=== PATIENT | female | born 2005 | race Caucasian/White ===

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

== ENCOUNTER 2023-03-31 09:52 | Emergency (ER) | payer BC, SELFPAY ==
[2023-03-31 10:03] VITALS: BP 129/69; PULSE 100; RESP 26; TEMP 36.7; O2SAT 100; BMI 25.1
[2023-03-31 10:04] VITALS: PULSE 77; O2SAT 99
--- NOTE | 2023-03-31 10:14 | ED.GENADULT ---
HPI - General Adult General Chief complaint: Rib Pain Stated complaint: reaction to medication Time Seen by Provider: 03/31/23 10:07 History of Present Illness HPI narrative: This 17-year-old female comes in reporting bilateral lower anterior rib pain that started this morning after vomiting. She states that she did have alcohol last night. She comes in with episodes of pain lasting for 10 or 15 minutes she says. She does not report any other symptoms but states that she did start Lexapro about 12 days ago and wonders if this is a reaction to that medicine. She states that she is otherwise in good health. Related Data Home Medications Medication Instructions Recorded Confirmed escitalopram oxalate 10 mg tablet mg PO 03/31/23 Previous Rx's Medication Instructions Recorded albuterol sulfate 90 mcg/actuation 2 puff inhalation Q4-6H PRN 04/09/22 aerosol inhaler shortness of breath or wheezing #8.5 grams benzonatate 100 mg capsule 100 mg PO BID-TID PRN cough #20 04/09/22 caps ketorolac 10 mg tablet 10 mg PO Q8H 5 days #15 tabs 03/31/23 ondansetron HCl 4 mg tablet 4 mg PO Q6H #10 tabs 03/31/23 Allergies Allergy/AdvReac Type Severity Reaction Status Date / Time No Known Drug Allergies Allergy Verified 03/31/23 10:01 Review of Systems Status of ROS: Reports: 10 or more systems reviewed and unremarkable except as noted in History and below Narrative: Constitutional: No fevers, no weight gain or loss. Eyes: No discharge. No vision changes. HENT: No congestion, no sore throat, no ear pain. Cardiovascular: No palpitations. Respiratory: No shortness of breath, no wheezes, no cough. Gastrointestinal: No abdominal pain, no vomiting, no diarrhea. Genitourinary: No dysuria, no hematuria. Musculoskeletal: Normal range of motion. Skin: No rashes, no pruritis. Neurological: No dizziness, weakness, sensory change, speech change. Endo/Heme/Allergies: No bruising or bleeding. No polydipsia. Pysch: no suicidality, no anxiety, no insomnia. All other systems reviewed and are negative. [facility] Medical History (Updated 03/31/23 @ 10:41 by James Foss MD) Sinus infection ?J32.9 - Chronic sinusitis, unspecified (ICD-10) Cough ?R05.9 - Cough, unspecified (ICD-10) Social History Smoking Status: Never smoker Do you use any of these nicotine containing products: None Second hand tobacco smoke exposure: No How often do you have a drink containing alcohol: never How often do you have six or more drinks on one occasion: Never AUDIT-C Alcohol total score: 0 Non-prescribed substance use: denies use service: No Exam Narrative: Exam Narrative: Constitutional: Well-developed, well-nourished, no acute distress. HEENT: Normocephalic, atraumatic. Neck: Normal range of motion. Nontender. Supple. Heart: Regular. No murmurs. Normal rate. Intact distal pulses. Lungs: Clear to auscultation. No wheezes, rhonchi, or rales. Pain in the lower anterior ribs bilaterally which is reproducible with deep breathing and certain movements. Abdomen: Normal bowel sounds. Nontender. No rebound tenderness. Genitalia: Deferred. Back: No midline tenderness. Normal range of motion. Extremities: Normal range of motion. No injury. Skin: Intact. No rash. Warm. No erythema or pallor. Neurologic: No altered sensation. No weakness. Alert and oriented. Psychiatric: No suicidality. No anxiety or depression. No insomnia. Nursing notes and vitals signs are reviewed. Const: Vital Signs, click to edit/add: Vital Signs - 24 hr 03/31/23 10:03 03/31/23 10:03 03/31/23 10:04 Temperature 98.0 F Pulse Rate 77 Pulse Rate [Left P ulse Oximeter] 100 Respiratory Rate 26 H Blood Pressure 129/69 Blood Pressure [Le ft Upper Arm] 129/69 Pulse Oximetry 100 99 Oxygen Delivery Me thod Room Air Course Vital Signs Vital signs: Initial Vital Signs Temperature 98.0 F 03/31/23 10:03 Temperature Source Temporal Artery Scan 03/31/23 10:03 Pulse Rate 100 03/31/23 10:03 Pulse Strength 3+ Normal 03/31/23 10:03 Respiratory Rate 26 H 03/31/23 10:03 Blood Pressure 129/69 03/31/23 10:03 Blood Pressure Mean 89 03/31/23 10:03 Blood Pressure Position Sitting 03/31/23 10:03 Pulse Oximetry 100 03/31/23 10:03 Oxygen Delivery Method Room Air 03/31/23 10:03 Vital Signs Temperature 98.0 F 03/31/23 10:03 Pulse Rate 100 03/31/23 10:03 Respiratory Rate 26 H 03/31/23 10:03 Blood Pressure 129/69 03/31/23 10:03 Pulse Oximetry 100 03/31/23 10:03 Oxygen Delivery Method Room Air 03/31/23 10:03 Temperature 98.0 F 03/31/23 10:03 Pulse Rate 77 03/31/23 10:04 Respiratory Rate 26 H 03/31/23 10:03 Blood Pressure 129/69 03/31/23 10:03 Pulse Oximetry 99 03/31/23 10:04 Oxygen Delivery Method Room Air 03/31/23 10:03 Medications Administered Medications: Discontinued Medications Generic Name Dose Route Start Last Admin Trade Name Freq PRN Reason Stop Dose Admin Ketorolac Tromethamine 30 mg 03/31/23 10:14 03/31/23 10:22 Ketorolac 30 Mg/Ml Inj IM 03/31/23 10:15 30 mg ONCE ONE Administration Medical Decision Making MDM Narrative Medical decision making narrative: This patient comes in with some vomiting episodes that began this morning and soon after this she had spasms of pain and her right and left anterior lower ribs. Her examination today is normal other than discomfort that comes and goes. This pain is reproducible suggesting musculoskeletal cause for her pain. I did discuss lab and imaging options with the patient which were declared in a process of shared decision making. The patient did receive an intramuscular injection of Toradol. She also received a rib belt and prescriptions are provided for Toradol and Reglan. Discharge Plan Discharge Clinical Impression: Acute chest wall pain, Vomiting Patient Disposition: Home, Self-Care Condition: Stable Additional Instructions: Take medication as needed and indicated. Wear rib belt also as needed. Follow up with MD return if worsening. Prescriptions: New ketorolac 10 mg tablet 10 mg PO Q8H 5 Days Qty: 15 0RF ondansetron HCl 4 mg tablet 4 mg PO Q6H Qty: 10 0RF No Action albuterol sulfate 90 mcg/actuation HFA aerosol inhaler 2 puff inhalation Q4-6H PRN (Reason: shortness of breath or wheezing) Qty: 8.5 0RF benzonatate 100 mg capsule 100 mg PO BID-TID PRN (Reason: cough) Qty: 20 0RF escitalopram oxalate 10 mg tablet PO Follow Up/Referrals: Provider,Not a Local [Primary Care Provider] - Stand Alone Forms: [employer] Info Instructions
[2023-03-31] MEDS: KETOROLAC 30 MG/ML inj IM (10:22)
--- OUTSIDE RECORDS SUMMARY | 2023-03-31 10:27 | XMS_ITS | Encounter Summary ---
Author Name Unknown Organization [facility] Address [address] [address] Phone Care Team Providers Care Sider Name Role Phone Debi Brand MD Primary Care Provider [phone] Reason for Visit * Ancillary Services (Routine) - Closed Specialty Diagnoses / Procedures Referred By Sharyn lynn Referred To Contact Radiology Diagnoses Chronic pain of left knee Procedures XR KNEE LT 4 OR MORE VIEWS Miles العلي MD [address] [place] [address] Referral ID Status Reason Start Date Expiration Date Visits Re quested Visits Authorized [id number] Closed 08/16/2022 11/17/2023 1 1 Encounter Details Date Type Department Care Team (Latest Contact Info) Description 08/16/2022 4:15 PM CDT Ancillary Procedure [facility] [address] [place] [address] Miles العلي MD [address] [place] [address] Chronic pain of left knee Social History Tobacco Use Types Packs/Day Years Used Date Smoking Tobacco: Never Smokeless Tobacco: Never Alcohol Use Standard Drinks/Week Comments Not Asked 0 (1 standard drink = 0.6 oz pur e alcohol) Overall Financial Resource Strain (CARDIA) Answe r Date Recorded How hard is it for you to pa y for the very basics like food, housing, medical care, and heating? Not hard at all 12/31/2020 PHQ-2 Answer Date Recorded PHQ-2 Total 0 08/16/2022 Hunger Vital Sign Answer Date Recorded Within the past 12 months, y ou worried that your food would run out before you got the money to buy more. Never true 01/01/20 21 Within the past 12 months, t he food you bought just didn't last and you didn't have money to get more. Never true 12/31/2020 PRAPARE - Transportation Answer Date Re corded In the past 12 months, has l ack of transportation kept you from medical appointments or from getting medications? No 12/19 In the past 12 months, has l ack of transportation kept you from meetings, work, or from getting things needed for daily living? No 12/31/2020 Sex and Gender Information Value Date Recorded Sex Assigned at Female 09/27/2020 6:18 PM CDT Gender Identity Female 09/27/2020 6:18 PM CDT Sexual Orientation Not on file Job Start Date Occupation Industry Not on file Not on file Not on file COVID-19 Exposure Response Date Recorded In the last 10 days, have yo u been in contact with someone who was confirmed or suspected to have Coronavirus/COVID-19? No / Unsure 08/16/2022 3:10 PM CDT documented as of this encounter Functional Status Functional Status Response Date of Assess ment Patient's Vision Adequate to Safely Complete Daily Activities Yes 05/17/2020 Patient's Memory Adequate to Safely Complete Daily Activities Yes 05/17/2020 Cognitive Status Response Date of Assessm ent Patient's Judgment Adequate to Safely Complete Daily Activities Yes 05/17/2020 documented as of this encounter Plan of Treatment Not on file documented as of this encounter Procedures Procedure Name Priority Date/Time Associated Diagnosis Comments XR KNEE LT 4 OR MORE VIEWS Routine 08/16/2022 4:22 PM CDT Chronic pain of left knee documented in this encounter Results * XR KNEE LT 4 OR MORE VIEWS (08/16/2022 4:22 PM CDT) Anatomical Region Laterality Modality Knee Radiographic Mandy ging 08/16/2022 4:22 PM CDT Narrative 08/16/2022 4:29 PM CDT This document is currently in Final Status Exam FOUR VIEW LEFT KNEE SERIES 08/16/2022 at 1621 hours INDICATION: Pain. FINDINGS: Knee compartments are well preserved. No acute or chronic bony abnormalities are seen. IMPRESSION: Normal left knee series. Dictated By: Natalio Valerio MD 08/16/2022 4:25 PM Edited By: SUDHAKAR 08/16/2022 4:28 PM Electronically Signed: Natalio Valerio MD 08/16/2022 4:29 PM Procedure Note Natalio Valerio MD - 08/16/2022 This document is currently in Final Status Exam FOUR VIEW LEFT KNEE SERIES 08/16/2022 at 1621 hours INDICATION: Pain. FINDINGS: Knee compartments are well preserved. No acute or chronic bonyabnormalities are seen. IMPRESSION: Normal left knee series. Dictated By: Natalio Valerio MD 08/16/2022 4:25 PM Edited By: SUDHAKAR 08/16/2022 4:28 PM Electronically Signed: Natalio Valerio MD 08/16/2022 4:29 PM Miles العلي MD [facility] G ORDERABLES documented in this encounter Visit Diagnoses Diagnosis Chronic pain of left knee Pain in joint, lower leg documented in this encounter Care Teams Sider Relationship Specialty [place] [address] [place] [id number] PCP - General Family Medicine 09/29/21 documented as of this encounter
--- OUTSIDE RECORDS SUMMARY | 2023-03-31 10:27 | XMS_ITS | Encounter Summary ---
Author Name Unknown Organization [facility] Address [address] [address] Phone Care Team Providers Care Pantry Worker Name Role Phone Debi Brand MD Primary Care Provider [phone] Encounter Details Date Type Department Care Team (Late st Contact Info) Description 08/28/2022 Telephone [facility] [address] [place] [address] Miles العلي MD [address] [place] [address] Social History Tobacco Use Types Packs/Day Years [...] on file documented as of this encounter Visit Diagnoses Not on filedocumented in this encounter Care Teams Pantry Worker Relationship Specialty [place] [address] [place] [address] PCP - General Family Medicine 09/29/21 documented as of this encounter
--- OUTSIDE RECORDS SUMMARY | 2023-03-31 10:27 | XMS_ITS | Clinical Summary ---
Author Name Unknown Organization [employer] [facility] Address [place], [place] [address] Care Team Providers Care Refinish Technician Name Role Phone Pcp, No Primary Care Provider Unavailabl e Allergies No known active allergies Medications No known medications Active Problems No known active problems Encounters Date Type Department Care Team Description 02/15/2023 1:45 PM TIN ASSORTER Ancillary Procedure [facility] [address] [place] [address] 02/15/2023 1:15 PM TIN ASSORTER Office Visit [facility] [address] [place] [address] Lyssa Cruz PA Foot Injury (Dropped 45lb dumbbell on left foot 2 days ago) 02/15/2023 Travel from Last 3 Months Social History Tobacco Use Types Packs/Day Years Used Date Smoking Tobacco: Never Smokeless Tobacco: Never Tobacco Cessation:Counseling Given: Not Answered Alcohol Use Standard Drinks/Week Comments Never 0 (1 standard drink = 0.6 oz pur e alcohol) Social Connections Answer Date Recorded Frequency of Communication with Friends and Fami ly Not on file 02/15/2023 Sex and Gender Information Value Date Recorded Sex Assigned at Not on file Gender Identity Not on file Sexual Orientation Not on file Obstetrics History Last Filed Vital Signs Vital Sign Reading Time Taken Comments Blood Pressure 101/63 02/15/2023 1:21 PM TIN ASSORTER Pulse 72 02/15/2023 1:21 PM TIN ASSORTER Temperature - - Respiratory Rate - - Oxygen Saturation 99% 02/15/2023 1:21 PM TIN ASSORTER Inhaled Oxygen Concentration - - Weight - - Height - - Body Mass Index - - Plan of Treatment Health Maintenance Due Date Last Done Comments Well Child Check for age 3-20 04/13/2006 HPV series for age 9-26 (1 - 2-dose series) 05/11/2014 Tdap 05/11/2014 Depression screening for age 12+ 2015 HIV for age 15-65 05/11/2018 Chlamydia for age 16-24 2019 BMI (ht and wt on same day) for age 18+ 05/11/2021 Hepatitis C screening for ag e 18-79 05/11/2021 COVID-19 vaccine series ( season) 2022 02/08/2022, 12/21/2020, 11/23/2020 Influenza for age 9-49 10/19/2022 Meningococcal series for age 11-21 Aged Out No longer eligible b ased on patient's age to complete this topic Pneumococcal series for age 6-64 Aged Out No longer eligible b ased on patient's age to complete this topic Procedures Procedure Name Priority Date/Time Associated Diagnosis Comments XR FOOT 3 VIEWS LEFT KAREN 02/15/2023 1:14 PM TIN ASSORTER Crush accident from Last 3 Months Results * XR FOOT 3 VIEWS LEFT (02/15/2023 1:14 PM TIN ASSORTER) Anatomical Region Laterality Modality FEET, FOOT L Computed Radiogr aphy 02/15/2023 2:04 PM TIN ASSORTER Narrative 02/15/2023 2:04 PM TIN ASSORTER For Patients: ??As a result of the Cures Act, medical imaging exams and procedure reports are released immediately into your electronic medical record. ??You may view this report before your referring provider. ??If you have questions, please contact your health care provider. Indication: Injury and pain Technique: Left foot 3 views. Comparison: None Findings: Bones: Alignment is normal. No fractures or bone lesions. ?? Joint spaces: Unremarkable. ?? Soft tissues: Unremarkable. ?? Impression: No sign of acute injury. Dictated by Jarad Brown MD @ Feb 15 2023 ??2:04PM (Electronically Signed) ?? Procedure Note Jarad Brown MD - 02/15/2023 For Patients: As a result of the Cures Act, medical imagingexams and procedure reports are released immediately into your electronicmedical record. You may view this report before your referring provider.If you have questions, please contact your health care provider. Indication: Injury and pain Technique: Left foot 3 views. Comparison: None Findings: Bones: Alignment is normal. No fractures or bone lesions. Joint spaces: Unremarkable. Soft tissues: Unremarkable. Impression: No sign of acute injury. Dictated by Jarad Brown MD @ Feb 15 2023 2:04PM (Electronically Signed) Lyssa KENYONIN G from Last 3 Months Care Teams Refinish Technician Relationship Specialty Start Date End Date Pcp, No . PCP - General 10/12/21
--- OUTSIDE RECORDS SUMMARY | 2023-03-31 10:27 | XMS_ITS | Encounter Summary ---
Author Name Unknown Organization [facility] Address [address] [place] [id number] Phone Care Team Providers Care Steamblaster Name Role Phone Debi Brand MD Primary Care Provider [phone] [phone] Encounter Details Date Type Department Care Team (Latest Contact Info) Description 01/12/2023 Travel Social History Tobacco Use Types Packs/Day [...] PHQ-2 Answer Date Recorded PHQ-2 Total 0 01/12/2023 Hunger Vital Sign Answer Date Recorded Within [...] on filedocumented in this encounter Care Teams Steamblaster Relationship Specialty [place] [address] [place] [phone] PCP - General Family Medicine 09/29/21 documented as of this encounter
--- OUTSIDE RECORDS SUMMARY | 2023-03-31 10:27 | XMS_ITS | Clinical Summary ---
Author Name Unknown Organization [facility] Address [address] [address] Phone Care Team Providers Care Plastics Patternmaker Name Role Phone Debi Brand MD Primary Care Provider [phone] [phone] Allergies No known active allergies Medications No known medications Active Problems Problem Noted Date Diagnosed Date Lactose intolerance 07/15/2012 ADHD (attention deficit hyperactivity disorder) Encounters Date Type Department Care Team Description 01/12/2023 12:00 PM PUSHER RUNNER Office Visit [facility] [address] [place], [place] [address] Shayan Hopkins MD Cellulitis, lip (Primary Dx); Facial contusion, initial encounter 01/12/2023 Travel from Last 3 Months Immunizations Name Administration Dates Next Due COVID-19 Vaccine: Pfizer Biv alent (TRI-SUCR Zavala) 12+ Yrs (Imm Clinic) 02/08/2022 COVID-19 Vaccine: Pfizer Dos e 1 (Purple- 12+ Yrs) [facility] 11/23/2020 COVID-19 Vaccine: Pfizer Dos e 2 (Purple- 12+ Yrs) [facility] 12/21/2020 DTaP <7 years 01/25/2005 HHiA-PyuJ-RRY (Pediarix) 2003,2003,0 2003 DTaP-IPV (Kinrix/Quadracel) 07/20/2008 Hepatitis A, Ped/Adolescent 2 dose 07/20/2008, Hib PRP OMP (PedvaxHib) 2004,2003, Human Papilloma Virus 9 09/28/2020,09/17/2017 Influenza (Historic Use Only) 12/25/2006 Influenza Live Intranasal Quad 01/16/2011 Influenza Live Trivalent Intranasal 11/15/2011,1 03/18/2010,12/11/2007 Influenza Quad Preservative Free 12/27/2016 Influenza Seasonal Inj A,B 12/12/2006,12/08/2004 ,2003 Influenza Seasonal Inj A,B P reservative Free 03/08/2004 Influenza Unspecified Formulation 12/25/2006 MMR 07/20/2008,2004 Meningococcal B Vaccine, Rec ombinant Omv, Adjuvanted 11/23/2020,09/28/2020 Meningococcal MCV4 (Menveo) 2 Vials 09/28/2020 Pneumococcal Conjugate, (Prevnar)7-valent 2003,2003,2003 Tdap (7 years and older) 09/20/2015 Varicella (Varivax) 07/20/2008,08/25/2004 meningococcal MCV4P (Menactra) 09/20/2015 Medical History Medical History Date Comments ADHD (attention deficit hyperactivity disorder) Social History Tobacco Use Types Packs/Day Years Used Date Smoking Tobacco: Never Smokeless Tobacco: Never Tobacco Cessation:Counseling Given: Not Answered Alcohol Use Standard Drinks/Week Comments Not Asked [...] History Growth Chart Information Age Height Weight Ezlflp-yyi-ihkz th Percentile BMI Percentile Head Circum Head Circum Percentile Date 17 years 77.3 kg (170 lb 6.7 oz) 2022 17 years 172.7 cm (5' 8) 78.9 kg (174 lb) 85.93%* 2022 17 years 172.7 cm (5' 8) 79.2 kg (174 lb 9.7 oz) 86.30%* 2022 16 years 170.2 cm (5' 7) 73.7 kg (162 lb 7.7 oz) 83.42%* 2021 15 years 170.8 cm (5' 7.25) 68.6 kg (151 lb 3.8 oz) 73.93%* 2020 13 years 170.2 cm (5' 7) 73.9 kg (163 lb) 88.84%* 2018 12 years 168.9 cm (5' 6.5) 72.6 kg (160 lb 0.9 oz) 91.31%* 2017 11 years 168.9 cm (5' 6.5) 70.9 kg (156 lb 4 oz) 91.26%* 2016 11 years 167.6 cm (5' 6) 68.4 kg (150 lb 12 oz) 91.20%* 2016 10 years 166.4 cm (5' 5.5) 62.6 kg (138 lb) 87.70%* 2015 7 years 47.6 kg (105 lb) 2013 7 years 153 cm (5' 0.25) 49.8 kg (109 lb 12 oz) 91.34%* 2013 7 years 43.5 kg (96 lb) 2012 6 years 141 cm (4' 7.5) 39.7 kg (87 lb 8 oz) 90.35%* 2012 6 years 139.7 cm (4' 7) 34.5 kg (76 lb) 78.43%* 2011 5 years 132.1 cm (4' 4) 31.8 kg (70 lb) 86.10%* 2010 * [facility] (Girls, 2-20 Years) Last Filed Vital Signs Vital Sign Reading Time Taken Comments Blood Pressure 112/76 01/12/2023 1:08 PM PUSHER RUNNER Pulse 74 01/12/2023 1:08 PM PUSHER RUNNER Temperature 36.1 ??C (97 ??F) 01/12/2023 1:08 PM PUSHER RUNNER Respiratory Rate 18 01/12/2023 1:08 PM PUSHER RUNNER Oxygen Saturation 100% 01/12/2023 1:08 PM PUSHER RUNNER Inhaled Oxygen Concentration - - Weight 77.3 kg (170 lb 6.7 oz) 01/12/2023 1:08 P M PUSHER RUNNER Height 172.7 cm (5' 8) 08/31/2022 2:55 PM CDT Body Mass Index 25.91 08/31/2022 2:55 PM CDT Plan of Treatment Health Maintenance Due Date Last Done Comments Chlamydia Screening 2019 CHILD AND TEEN CHECKUP AGE 3-20 YRS 09/29/2022 09/29/2021, 09/29/2021, 09/29/2021, Additional history exists COVID-19 Vaccine ( season) 2022 02/08/2022, 12/21/2020, 11/23/2020 Influenza Vaccine Seasonal (Standing Order) (#1) 2022 12/27/2016, 01/16/2011, 12/25/2006, Additional history exists DTaP,Tdap,and Td Vaccines (Standing Order) (7 - Td or Tdap) 09/19/2025 09/20/2015, 07/20/2008, 01/25/2005, Additional history exists TETANUS (Standing Order) 09/19/2025 016, 01/25/2005, 2003, Additional history exists Hepatitis B Vaccine (Standing Order) Completed 2003, 2003, 2003 Pneumococcal/PCV20 Vaccine: Pediatrics (2-5 yrs) and At-Risk Patients (6-64 yrs) (Standing Order) Aged Out 2003, 2003, 2003 No longer eligible based on patient's age to complete this topic PERTUSSIS (Standing Order) Completed 09/19, 07/20/2008, 01/25/2005, Additional history exists HPV Vaccine (Standing Order) Completed 09/28/2020, 09/17/2017 Care Teams Plastics Patternmaker Relationship Specialty [place] [address] [facility] [place] [phone] PCP - General Family Medicine 09/29/21
--- OUTSIDE RECORDS SUMMARY | 2023-03-31 10:27 | XMS_ITS | Encounter Summary ---
Author Name Unknown Organization [facility] Address [address] [place] [address] Phone Care Team Providers Care Program/Music Director Name Role Phone Debi Brand MD Primary Care Provider [phone] [phone] Encounter Details Date Type Department Care Team (Latest Contact Info) Description 08/16/2022 Travel Social History Tobacco Use Types Packs/Day [...] on filedocumented in this encounter Care Teams Program/Music Director Relationship Specialty Start [place] [id number] [place] [phone] PCP - General Family Medicine 09/29/21 documented as of this encounter
--- OUTSIDE RECORDS SUMMARY | 2023-03-31 10:27 | XMS_ITS | Encounter Summary ---
Author Name Unknown Organization [facility] Address [address] [address] Phone Care Team Providers Care Arc And Gas Welder Name Role Phone Debi Brand MD Primary Care Provider [phone] [phone] Reason for Referral * Diagnostic (Routine) - Closed Specialty Diagnoses / Procedures Referred By Contac leah Referred To Contact Radiology Diagnoses Chronic pain of left knee Injury of left knee, initial encounter Acute meniscal injury of left knee, initial encounter Internal derangement of left knee Procedures MR KNEE LEFT WO CONTRAST Miles العلي MD [address] [place] [address] Referral ID Status Reason Start Date Expiration Date Visits Re quested Visits Authorized [id number] Closed 08/17/2022 11/17/2023 1 1 * Ancillary Services (Routine) - Closed Specialty Diagnoses / Procedures Referred By Contac t Referred To Contact Radiology Diagnoses Chronic pain of left knee Procedures XR KNEE LT 4 OR MORE VIEWS Miles العلي MD [address] [place] [address] Referral ID Status Reason Start Date Expiration Date Visits Re quested Visits Authorized [id number] Closed 08/16/2022 11/17/2023 1 1 Reason for Visit * Reason Comments Consult Left knee Encounter Details Date Type Department Care Team (Late st Contact Info) Description 08/16/2022 3:40 PM CDT Office Visit [facility] [address] [place] [phone] Miles العلي MD [address] [facility] [place] [place] [phone] Chronic pain of left knee (Primary Dx); Injury of left knee, initial encounter; Acute meniscal injury of left knee, initial encounter; Internal derangement of left knee Social History Tobacco Use [...] PM CDT documented as of this encounter Last Filed Vital Signs Vital Sign Reading Time Taken Comments Blood Pressure - - Pulse - - Temperature - - Respiratory Rate - - Oxygen Saturation - - Inhaled Oxygen Concentration - - Weight 79.2 kg (174 lb 9.7 oz) 08/16/2022 3:46 P M CDT Height 172.7 cm (5' 8) 08/16/2022 3:46 PM CDT Body Mass Index 26.55 08/16/2022 3:46 PM CDT documented in this encounter Functional Status Functional Status Response Date of Assess ment Patient's Vision Adequate to Safely Complete Daily Activities Yes 05/17/2020 Patient's Memory Adequate to Safely Complete Daily Activities Yes 05/17/2020 Cognitive Status Response Date of Assessm ent Patient's Judgment Adequate to Safely Complete Daily Activities Yes 05/17/2020 documented as of this encounter Progress Notes * Miles العلي MD - 08/16/2022 3:40 PM CDT CHIEF COMPLAINT: Chief Complaint Patient presents with ??? Consult Left knee HISTORY OF PRESENT ILLNESS: Barbie is a very pleasant 17 year old female who comes in today for evaluation of her left knee. 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 She states that she has had pain over her knee cap for about 4 months. Thispain is worse with running and jumping. She describes her pain as stabbing and will feel like something is stuck in her knee at times. She has a history of MCL tear, bursitis, and tendinitis in her knee. She has been working on therapy with her system trainer for about a month and will feel better with this, but states that her pain will return when she returns to activity. She presents today for evaluation and to discuss treatment options. PAIN SCORE: Four REVIEW OF SYSTEMS: Constitutional: no weight loss, fever, night sweats Skin: no rashes, pigmentation changes, or lesions of concern Resp: no cough or shortness of breath CV: no chest pains or palpitations Musculoskeletal: POSITIVE - please see above HPI for details No current outpatient medications on file. No current facility-administered medications for this visit. Allergies as of 08/16/2022 ??? (No Known Allergies) Past Medical History: Diagnosis Date ??? ADHD (attention deficit hyperactivity disorder) No past surgical history on file. No family history on file. Social History Tobacco Use ??? Smoking status: Never ??? Smokeless tobacco: Never Vaping Use ??? Vaping Use: Never used EXAMINATION: Vitals: 08/16/22 1546 Weight: 174 lb 9.7 oz (79.2 kg) Height: 5' 8 (1.727 m) Body mass index is 26.55 kg/m??. Patient is alert and orientated x4 and non-focal. Left Knee: Inspection: Deformity: Negative Swelling: Slight anteriorly Atrophy: Negative Skin changes: Negative Scars: Negative Tibial tubercle: Negative for bony growth Palpation / Tenderness: Tibial tuberosity: Negative Medial joint line: Positive Lateral joint line: Negative Patella: positive medially MCL: Negative LCL: Negative Patellar tendon: Negative Quad tendon: Negative Pes anserine bursa: Negative IT band: Negative Posterior knee: Negative Hamstring: Negative Neurovascular: Distal pulses: Intact Sensation: Intact medial thigh (obturator nerve), anterior thigh (femoral nerve), posterolateral calf (sciatic nerve), dorsal foot (peroneal nerve), plantar foot (tibial nerve) Range of Motion: Flexion: 120 degrees Extension: 0 degrees Strength Testing: Quadriceps: 5/5 Hamstrings: 5/5 Hips: 5/5 strength in dorsiflexion, plantar flexion, and EHL. Provocative Testing: ACL: Anterior drawer: negative Selvin: negative with firm endpoint PCL: Posterior drawer: negative Sag sign: negative MCL: Valgus stress: negative LCL: Varus stress: negative Meniscus: Lurdes: positive for medial pain Patellofemoral: Patellar grind test: negative Apley: negative Thesally: Positive IMAGING: I personally reviewed xrays of the patient's left knee taken today in the clinic due to complaints of pain and these demonstrate no evidence of fracture or other osseous abnormality. ASSESSMENT: 1. Chronic pain of left knee 2. Injury of left knee, initial encounter 3. Acute meniscal injury of left knee, initial encounter 4. Internal derangement of left knee PLAN: - Discussed with patient today that clinical presentation is most consistent with a left kneemeniscus tear. - Also discussed possible differential diagnosis which includes: left knee strain/sprain. - Recommended interventions including: -Wcvg-und-rjlsjqw pain medications such as acetaminophen, ibuprofen, topical diclofenac gel -Use of heat/ice as tolerated -Rest and physical activity modification -Further imaging -Consideration for physical therapy - Through shared decision making, patient opted to trial Further imaging via a left knee mri to rule out a meniscus tear. I will contact her with the results of this imaging. - Recommend follow-up after her MRI. - Patient was agreeable to plan of care. All questions/concerns were addressed. I, Marck Palacios, am serving as a scribe to document services professionally performed by Dr. Miles العلي for this visit based on the providers statements to me on the date of this clinic visit. documented in this encounter Plan of Treatment Not on file documented as of this encounter Results * MR KNEE LEFT WO CONTRAST (08/27/2022 2:28 PM CDT) Anatomical Region Laterality Modality Knee Magnetic Resonan ce 08/27/2022 2:28 PM CDT Narrative 08/27/2022 4:55 PM CDT This document is currently in Final Status Exam MR KNEE LEFT WO CONTRAST HISTORY: Knee trauma, internal derangement suspected, xray done; COMPARISON: 08/16/2022 FINDINGS: Ligaments/Tendons: ACL and PCL are intact. MCL, LCL and additional structures of the posterolateral corner are also intact. Focal T2 hyperintense signal involving the proximal patellar tendon. No full-thickness tear. Mild overlying superficial soft tissue edema as well. Medial Compartment: Meniscus is intact. No significant chondromalacia. Lateral Compartment: Meniscus is intact. No significant chondromalacia. Patellofemoral compartment: No significant chondromalacia. Bones/Muscle: Visualized bones and musculature are otherwise normal. Other: Trace joint effusion. No Mcbride's cyst. Neurovascular structures are unremarkable. IMPRESSION: 1. Low-grade partial-thickness tearing and tendinopathy involving the proximal patellar tendon with adjacent reactive changes. 2. Menisci and ligaments are otherwise intact. Electronically Signed: Charlie Helms 08/27/2022 4:55 PM Procedure Note Charlie Helms MD - 08/27/2022 This document is currently in Final Status Exam MR KNEE LEFT WO CONTRAST HISTORY: Knee trauma, internal derangement suspected, xray done; COMPARISON: 08/16/2022 FINDINGS: Ligaments/Tendons: ACL and PCL are intact. MCL, LCL and additionalstructures of the posterolateral corner are also intact. Focal [id number] signal involving the proximal patellar tendon. Nofull-thickness tear. Mild overlying superficial soft tissue edema aswell. Medial Compartment: Meniscus is intact. No significant chondromalacia. Lateral Compartment: Meniscus is intact. No significant chondromalacia. Patellofemoral compartment: No significant chondromalacia. Bones/Muscle: Visualized bones and musculature are otherwise normal. Other: Trace joint effusion. No Mcbride's cyst. Neurovascular structures areunremarkable. IMPRESSION: 1. Low-grade partial-thickness tearing and tendinopathy involving theproximal patellar tendon with adjacent reactive changes. 2. Menisci and ligaments are otherwise intact. Electronically Signed: Charlie Helms 08/27/2022 4:55 PM Miles العلي MD [facility] MRI ORDERABLES * XR KNEE LT 4 OR MORE [...] Visit Diagnoses Diagnosis Chronic pain of left knee- Primary Pain in joint, lower leg Injury of left knee, initial encounter Acute meniscal injury of left knee, initial encounter Internal derangement of left knee Unspecified internal derangement of knee Chronic pain of left knee Pain in joint, lower leg Chronic pain of left knee Pain in joint, lower leg Injury of left knee, initial encounter Acute meniscal injury of left knee, initial encounter Internal derangement of left knee Unspecified internal derangement of knee documented in this encounter Care Teams Arc And Gas Welder Relationship Specialty [place] [address] [place] [phone] PCP - General Family Medicine 09/29/21 documented as of this encounter
--- OUTSIDE RECORDS SUMMARY | 2023-03-31 10:27 | XMS_ITS | Encounter Summary ---
Author Name Unknown Organization [facility] Address [address] [address] Phone Care Team Providers Care Candy Counter Clerk Name Role Phone Debi Brand MD Primary Care Provider [phone] [phone] Reason for Visit * Diagnostic (Routine) - Closed Specialty Diagnoses / Procedures Referred By Sharyn lynn Referred To Contact Radiology Diagnoses Chronic pain of left knee Injury of left knee, initial encounter Acute meniscal injury of left knee, initial encounter Internal derangement of left knee Procedures MR KNEE LEFT WO CONTRAST Miles العلي MD [address] [place] [address] Referral ID Status Reason Start Date Expiration Date Visits Re quested Visits Authorized [id number] Closed 08/17/2022 11/17/2023 1 1 Encounter Details Date Type Department Care Team (Latest Contact Info) Description 08/27/2022 2:00 PM CDT Ancillary Procedure [facility] [address] [place] [address] Miles العلي MD [address] [place] [address] Chronic pain of left knee; Injury of left knee, initial encounter; Acute [...] Procedure Name Priority Date/Time Associated Diagnosis Comments MR KNEE LEFT WO CONTRAST Routine 08/27/2022 2:28 PM CDT Chronic pain of left knee Injury of left knee, initial encounter Acute meniscal injury of left knee, initial encounter Internal derangement of left knee documented in this encounter Results * MR KNEE LEFT [...] the posterolateral corner are also intact. Focal [id number] signal involving the proximal patellar tendon. Nofull-thickness [...] PM Miles العلي MD [facility] MRI ORDERABLES documented in this encounter Visit Diagnoses Diagnosis Chronic pain of left knee Pain in joint, lower leg Injury of left knee, initial encounter Acute meniscal injury of left knee, initial encounter Internal derangement of left knee Unspecified internal derangement of knee documented in this encounter Care Teams Candy Counter Clerk Relationship Specialty [place] [address] [place] [phone] PCP - General Family Medicine 09/29/21 documented as of this encounter
--- OUTSIDE RECORDS SUMMARY | 2023-03-31 10:27 | XMS_ITS | Encounter Summary ---
Author Name Unknown Organization [facility] Address [address] [place] [phone] Phone Care Team Providers Care Natural Resource Economist Name Role Phone Debi Brand MD Primary Care Provider [phone] [phone] Encounter Details Date Type Department Care Team (Latest Contact Info) Description 08/31/2022 Travel Social History Tobacco Use Types Packs/Day [...] suspected to have Coronavirus/COVID-19? No / Unsure 08/31/2022 2:41 PM CDT documented as of this encounter [...] on filedocumented in this encounter Care Teams Natural Resource Economist Relationship Specialty Start [place] [id number] [place] [phone] PCP - General Family Medicine 09/29/21 documented as of this encounter
--- OUTSIDE RECORDS SUMMARY | 2023-03-31 10:27 | XMS_ITS | Encounter Summary ---
Author Name Unknown Organization [facility] Address [address] [address] Phone Care Team Providers Care Client Relationship Executive Name Role Phone Debi Brand MD Primary Care Provider [phone] Reason for Visit * Reason Comments Mouth/Lip Problem Pt states she was hi t in the mouth playing basketball in college, the upper and lower lip has open sore, and top and bottom teeth hurts. Has not been eating or drinking. Injury happened Saturday. Encounter Details Date Type Department Care Team (Late st Contact Info) Description 01/12/2023 12:00 PM BELLOWS ASSEMBLER Office Visit [facility] [address] [place] [address] [place] [address] [place] [address] Cellulitis, lip (Primary Dx); Facial contusion, initial encounter Social History Tobacco Use Types Packs/Day Years [...] Comments Blood Pressure 112/76 01/12/2023 1:08 PM BELLOWS ASSEMBLER Pulse 74 01/12/2023 1:08 PM BELLOWS ASSEMBLER Temperature 36.1 ??C (97 ??F) 01/12/2023 1:08 PM BELLOWS ASSEMBLER Respiratory Rate 18 01/12/2023 1:08 PM BELLOWS ASSEMBLER Oxygen Saturation 100% 01/12/2023 1:08 PM BELLOWS ASSEMBLER Inhaled Oxygen Concentration - - Weight 77.3 kg (170 lb 6.7 oz) 01/12/2023 1:08 P M BELLOWS ASSEMBLER Height - - Body Mass Index 25.91 08/31/2022 2:55 PM CDT documented in this encounter Functional Status Functional Status Response Date of Assess ment Patient's Vision Adequate to Safely Complete Daily Activities Yes 05/17/2020 Patient's Memory Adequate to Safely Complete Daily Activities Yes 05/17/2020 Cognitive Status Response Date of Assessm ent Patient's Judgment Adequate to Safely Complete Daily Activities Yes 05/17/2020 documented as of this encounter Ordered Prescriptions Prescription Sig Dispensed Refills Start Date End Da te nabumetone (Relafen) 750 MG tablet Take 1 Tablet by mouth two times a day for 7 days. Take with food. 14 Tablet 0 01/12/2023 01/19/2023 amoxicillin (Amoxil) 875 MG tabletIndications:Infec tion Take 1 Tablet by mouth every 12 hours for 7 days. Indications: Infection 14 Tablet 0 01/12/2023 01/19/2023 documented in this encounter Progress Notes * Shayan Hopkins MD - 01/12/2023 12:00 PM CST Patient Barbie Chu Chief Complaint Mouth/Lip Problem (Pt states she was hit in the mouth playing basketball in college, the upper and lower lip has open sore, and top and bottom teeth hurts. Has not been eating or drinking. Injury happened Saturday.) 17-year-old female patient of [facility] comes in for facial swelling on Saturday she got and elbowed in the face while she was playing basketball she cut her lower lip on her upper lip a little bit presently and things significant but then she is developing more swelling and pain and she had some purulent drainage below 1 wound today she is some generalized swelling on the right side of her facefrom the injury but she is worried about infection and to the swelling getting becoming kind of painful she is having no issues with her teeth and did not lose any consciousness HPI Review of Systems No Known Allergies Patient's Medications New Prescriptions AMOXICILLIN (AMOXIL) 875 MG TABLET Take 1 Tablet by mouth every 12 hours for 7 days. Indications: Infection NABUMETONE (RELAFEN) 750 MG TABLET Take 1 Tablet by mouth two times a day for 7 days. Take with food. Previous Medications No medications on file Modified Medications No medications on file Discontinued Medications No medications on file Past Medical History: Past Medical History: Diagnosis Date ??? ADHD (attention deficit hyperactivity disorder) Past Surgical History: No past surgical history on file. Family History: Her family history is not on file. Social History: She reports that she has never smoked. She has never used smokeless tobacco. Exam: Vitals: 01/12/23 1308 BP: 112/76 Pulse: 74 Temp: 36.1 ??C (97 ??F) TempSrc: Tympanic Resp: 18 Weight: 170 lb 6.7 oz (77.3 kg) SpO2: 100% Physical Exam Vitals are stable and afebrile she no acute distress oral exam demonstrates 2 superficial wounds onher upper and lower lip the upper lip is more erythematous warm and swollen I can express no purulent material and there is just some generalized swelling and edema along her right cheek Lab Results: No results found for this visit on 01/12/23. Lab results are reviewed as documented in the electronic chart. Rad Results: No results found. Radiographs interpreted by the ED physician will be over-read by a radiologist and the results willbe available in the electronic chart. Other Results: Course: Procedures: Procedures @[id number]@ Assessment: Infection of the upper lip Facial contusion on the right Plan: Amoxicillin twice a day for a week along with some Relafen for pain and swelling continue to ice the area and follow-up next week if her symptoms or not improving OWS ASSEMBLER documented in this encounter Plan of Treatment Not on file documented as of this encounter Visit Diagnoses Diagnosis Cellulitis, lip- Primary Diseases of lips Facial contusion, initial encounter documented in this encounter Care Teams Client Relationship Executive Relationship Specialty Start Date End Date Debi Brand MD [address] [place] [phone] PCP - General Family Medicine 09/29/21 documented as of this encounter
--- OUTSIDE RECORDS SUMMARY | 2023-03-31 10:27 | XMS_ITS | Encounter Summary ---
Author Name Unknown Organization [facility] Address [address] [address] Phone Care Team Providers Care Technical Communicator Name Role Phone Debi Brand MD Primary Care Provider [phone] Reason for Visit * Reason Comments Follow Up Left knee Encounter Details Date Type Department Care Team (Late st Contact Info) Description 08/31/2022 3:00 PM CDT Office Visit [facility] [address] [place] [address] Miles العلي MD [address] [place] [phone] Patellar tendinitis of left knee (Primary Dx); Chronic pain of left knee; Internal derangement of left knee Social History [...] Recorded In the last 10 days, have kiah u been in contact with someone who was confirmed or suspected to have Coronavirus/COVID-19? No / Unsure 08/31/2022 2:41 PM CDT documented as of this encounter Last Filed Vital Signs Vital Sign Reading Time Taken Comments Blood Pressure - - Pulse - - Temperature - - Respiratory Rate - - Oxygen Saturation - - Inhaled Oxygen Concentration - - Weight 78.9 kg (174 lb) 08/31/2022 2:55 PM CDT Height 172.7 cm (5' 8) 08/31/2022 2:55 PM CDT Body Mass Index 26.46 08/31/2022 2:55 PM CDT documented in this [...] Progress Notes * Miles العلي MD - 08/31/2022 3:00 PM CDT CHIEF COMPLAINT: Chief Complaint Patient presents with ??? Follow Up Left knee HISTORY OF PRESENT ILLNESS: Barbie comes in today for follow up of her left knee. At last visit on 08/16/2022, I recommended she obtain an MRI scan of the left which was done on 08/27/2022 through [facility]. Patient is here today to discuss the results of that MRI as well as recommended treatment options. PAIN SCORE: Seven REVIEW OF SYSTEMS: Constitutional: no weight loss, fever, night sweats Skin: no rashes, pigmentation changes, or lesions of concern Resp: no cough or shortness of breath CV: no chest pains or palpitations Musculoskeletal: POSITIVE - please see above HPI for details No current outpatient medications on file. No current facility-administered medications for this visit. Allergies as of 08/31/2022 ??? (No Known Allergies) Past Medical History: Diagnosis Date ??? ADHD (attention deficit hyperactivity disorder) No past surgical history on file. No family history on file. Social History Tobacco Use ??? Smoking status: Never ??? Smokeless tobacco: Never Vaping Use ??? Vaping Use: Never used EXAMINATION: Vitals: 08/31/22 1455 Weight: 174 lb (78.9 kg) Height: 5' 8 (1.727 m) Body mass index is 26.46 kg/m??. EXAM: No formal examination done today as today's visit was focused on review of MRI results and to discuss treatment plan. IMAGING: I personally reviewed the MRI scan of the patient's left knee taken on 08/27/2022 at [facility] and this demonstrates a low-grade partial- thickness tearing and tendinopathy involving the proximal patellar tendon. ASSESSMENT: 1. Low-grade partial-thickness tearing and tendinopathy involving the proximal patellar tendon PLAN: - Discussed with patient today that clinical presentation is most consistent with low-grade partial-thickness tearing and tendinopathy involving the proximal patellar tendon. We discussed treatment recommendations that include tendon fenestrations or platelet rich plasma injections to help force healing to the patellae tendon. - Recommended interventions including: -Uzwv-gtf-rshdgbb pain medications such as acetaminophen, ibuprofen, topical diclofenac gel -Use of heat/ice as tolerated -Rest and physical activity modification -Consideration for tendon fenestrations/PRP injection - Through shared decision making, patient opted to continue conservative management while taking some time to consider all discussed treatment options. - Recommend follow-up as needed - Patient was agreeable to plan of care. All questions/concerns were addressed. Elodia Hatch CNA, am serving as a scribe to document services professionally performed by Dr. Miles العلي for this visit based on the providers statements to me on the date of this clinic visit. documented in this encounter Plan of Treatment Not on file documented as of this encounter Visit Diagnoses Diagnosis Patellar tendinitis of left knee- Primary Patellar tendinitis Chronic pain of left knee Pain in joint, lower leg Internal derangement of left knee Unspecified internal derangement of knee documented in this encounter Care Teams Technical Communicator Relationship Specialty [place] [address] [place] [phone] PCP - General Family Medicine 09/29/21 documented as of this encounter
== END 2023-03-31 10:46 | disposition home or self-care (01) ==
PROVIDERS: Emergency Provider Emergency Medicine Emergency Medical Services
DX: R07.89 Other chest pain (principal); R11.10 Vomiting, unspecified
CPT/HCPCS: 96372; 99284; J1885

== ENCOUNTER 2023-11-12 20:51 | Emergency (ER) | payer BC, SELFPAY ==
[2023-11-12 20:53] VITALS: BP 113/71; PULSE 72; RESP 16; TEMP 36.4; O2SAT 100; BMI 25.4
--- NOTE | 2023-11-12 21:25 | ED_ITS ---
HPI - Headache General Chief Complaint: Headache/Migraine Stated Complaint: headache, abd pain, vomiting Time Seen by Provider: 11/12/23 21:15 History of Present Illness HPI Narrative: This 18-year-old female comes in with migraine type headache. Symptoms began yesterday and worsened somewhat last night. Her headache became much more significant today and included nausea with vomiting and light sensitivity. She states that she has a history of headaches and this 1 feels similar but is intractable with sgld-vut-clfvyfo medicines. Related Data Home Medications ?Medication ?Instructions ?Recorded ?Confirmed escitalopram oxalate 10 mg tablet 15 mg PO 03/31/23 clonidine HCl 0.1 mg tablet 0.1 mg PO DAILY 11/12/23 11/12/23 Allergies Allergy/AdvReac Type Severity Reaction Status Date / Time No Known Drug Allergies Allergy Verified 03/31/23 10:01 Review of Systems Status of ROS: Reports: 10 or more systems reviewed and unremarkable except as noted in History and below Narrative: Constitutional: No fevers, no weight gain or loss. Eyes: No discharge. No vision changes. HENT: No congestion, no sore throat, no ear pain. Cardiovascular: No chest pain, no palpitations. Respiratory: No shortness of breath, no wheezes, no cough. Gastrointestinal: No abdominal pain, no diarrhea. Genitourinary: No dysuria, no hematuria. Musculoskeletal: Normal range of motion. Skin: No rashes, no pruritis. Neurological: No dizziness, weakness, sensory change, speech change. Endo/Heme/Allergies: No bruising or bleeding. No polydipsia. Pysch: no suicidality, no anxiety, no insomnia. All other systems reviewed and are negative. [facility] Medical History (Updated 11/12/23 @ 21:28 by James Foss MD) Sinus infection ?J32.9 - Chronic sinusitis, unspecified (ICD-10) Cough ?R05.9 - Cough, unspecified (ICD-10) Social History Smoking Status: Never smoker Do you use any of these nicotine containing products: None Second hand tobacco smoke exposure: No How often do you have a drink containing alcohol: never How often do you have six or more drinks on one occasion: Never AUDIT-C Alcohol total score: 0 Non-prescribed substance use: denies use service: No Exam Narrative: Exam Narrative: Constitutional: Well-developed, well-nourished, no acute distress. HEENT: Normocephalic, atraumatic. Neck: Normal range of motion. Nontender. Supple. Heart: Intact distal pulses. Lungs: No chest discomfort. No wheezes, rhonchi, or rales. Abdomen: Nontender. Back: Normal range of motion. Extremities: Normal range of motion. No injury. Skin: Intact. No rash. Warm. No erythema or pallor. Neurologic: No altered sensation. No weakness. Alert and oriented. Psychiatric: No suicidality. No anxiety or depression. No insomnia. Nursing notes and vitals signs are reviewed. Const: Vital Signs, click to edit/add: Vital Signs - 24 hr 11/12/23 20:53 Temperature 97.6 F Pulse Rate [Pulse Oximeter] 72 Respiratory Rate 16 Blood Pressure [Ri ght Upper Arm] 113/71 Pulse Oximetry 100 Oxygen Delivery Me thod Room Air Course Vital Signs Vital signs: Initial Vital Signs Temperature 97.6 F 11/12/23 20:53 Temperature Source Temporal Artery Scan 11/12/23 20:53 Pulse Rate 72 11/12/23 20:53 Respiratory Rate 16 11/12/23 20:53 Blood Pressure 113/71 11/12/23 20:53 Blood Pressure Mean 85 11/12/23 20:53 Blood Pressure Position Sitting 11/12/23 20:53 Pulse Oximetry 100 11/12/23 20:53 Oxygen Delivery Method Room Air 11/12/23 20:53 Vital Signs Temperature 97.6 F 11/12/23 20:53 Pulse Rate 72 11/12/23 20:53 Respiratory Rate 16 11/12/23 20:53 Blood Pressure 113/71 11/12/23 20:53 Pulse Oximetry 100 11/12/23 20:53 Oxygen Delivery Method Room Air 11/12/23 20:53 Temperature 97.6 F 11/12/23 20:53 Pulse Rate 72 11/12/23 20:53 Respiratory Rate 16 11/12/23 20:53 Blood Pressure 113/71 11/12/23 20:53 Pulse Oximetry 100 11/12/23 20:53 Oxygen Delivery Method Room Air 11/12/23 20:53 MDM - Headache MDM Narrative Medical decision making narrative: This patient comes in with symptoms typical of a migraine that is not adequately treated with dcdh-zdg-hyyynxl medicines. She is not showing any signs or symptoms of a worrisome cause for her headache. An IV was established where she received doses of Toradol 15 mg, Benadryl 50 mg, and Zofran 4 mg. The patient also received a L of normal saline intravenously. These treatments brought complete relief of her headache. She is okay to be discharged home. Discharge Plan Discharge Clinical Impression: Migraine Patient Disposition: Home, Self-Care Condition: Improved Additional Instructions: Use medicines as needed and prescribed for headache symptoms. Follow up with MD return if worsening. Prescriptions: No Action escitalopram oxalate 10 mg tablet 15 mg PO clonidine HCl 0.1 mg tablet 0.1 mg PO DAILY Follow Up/Referrals: Provider,Not a Local [Primary Care Provider] - Stand Alone Forms: [employer] Info Instructions
--- OUTSIDE RECORDS SUMMARY | 2023-11-12 21:29 | XMS_ITS | Encounter Summary ---
Author Organization [facility] Address [address] [place] [address] Phone Care Team Providers Care Voltage Tester Name Role Phone Debi Brand MD Primary Care Provider [phone] Encounter Details Date Type Department Care Team (Late st Contact Info) Description 09/10/2023 12:50 PM CDT ALLIED HEALTH/NURSE VISIT [facility] [address] [place] [address] Social History Tobacco Use Types [...] PHQ-2 Answer Date Recorded PHQ-2 Total 0 09/10/2023 Hunger Vital Sign Answer Date Recorded Within [...] as of this encounter Plan of Treatment Upcoming Encounters Date Type Department Care Team (Late st Contact Info) Description 01/29/2024 3:00 PM MILL STENCILER Appointment [facility] [address] [phone] Joellen Andrade DO [address] [phone] documented as of this encounter Procedures Procedure Name Priority Date/Time Associated Diagnosis Comments VITAMIN D TOTAL Routine 09/10/2023 12:46 PM CDT Facial tic COMPREHENSIVE METABOLIC PANEL Routine 09/10/2023 12:46 PM CDT Facial tic HEMOGRAM Routine 09/10/2023 12:46 PM CDT Facial tic MAGNESIUM Routine 09/10/2023 12:46 PM CDT Facial tic VITAMIN B12 Routine 09/10/2023 12:46 PM CDT Facial tic documented in this encounter Results * MAGNESIUM (09/10/2023 12:46 PM CDT) Magnesium 2.1 1.8 - 2.7 mg/dL 09/10/2023 3:16 PM CDT [facility] Blood BLOOD SPECIMEN / Unknown Venipuncture / Unknown 09/10/2023 12:46 PM CDT 09/10/2023 12:46 PM CDT Debi Brand MD EC CHEMISTRY JEFFREY GARCIA [facility] [address] [place] [address], [facility] * (ABNORMAL) COMPREHENSIVE METABOLIC PANEL (09/10/2023 12:46 PM CDT) Sodium 137 134 - 143 mEq/L 09/10/2023 1:19 PM CDT [facility] Potassium 4.2 3.4 - 5.1 mEq/L 09/10/2023 1:19 PM CDT [facility] Chloride 104 99 - 110 mEq/L 09/10/2023 1:19 PM CDT [facility] Carbon Dioxide 26 19 - 29 mEq/L 09/10/2023 1:19 PM CDT [facility] Anion Gap 7.0 3.0 - 15.0 mEq/L 09/10/2023 1:19 PM CDT [facility] Blood Urea Nitrogen 12 5 - 24 mg/dL 09/10/2023 1:19 PM CDT [facility] Creatinine 1.04(H) 0.40 - 1.00 mg/dL 09/10/2023 1:19 PM CDT [facility] Glomerular Filtration Rate 79 >60 mL/min/1. 73 m*2 09/10/2023 1:19 PM CDT [facility] Comment:Risk of cardiovascul ar disease increases when GFR is abnormal; persistently reduced GFR values are a specific indication of CKD. This calculation uses CKD- EPI 2020 equation without adjustment for race; it has not been validated in women. Calcium 9.8 8.4 - 10.5 mg/dL 09/10/2023 1:19 PM CDT [facility] Glucose 88 70 - 99 mg/dL 09/10/2023 1:19 PM CDT [facility] Protein, Total 7.8 6.0 - 8.0 g/dL 09/10/2023 1:19 PM CDT [facility] Albumin 4.3 3.5 - 5.0 g/dL 09/10/2023 1:19 PM CDT [facility] Alkaline Phosphatase 76 40 - 150 IU/L 09/10/2023 1:19 PM CDT [facility] Aspartate Aminotransferase 17 10 - 40 IU/L 09/10/2023 1:19 PM CDT [facility] Alanine Aminotransferase 13 6 - 31 IU/L 09/10/2023 1:19 PM CDT [facility] Bilirubin, Total 0.4 0.2 - 1.2 mg/dL 09/10/2023 1:19 PM CDT [facility] Blood BLOOD SPECIMEN / Unknown Venipuncture / Unknown 09/10/2023 12:46 PM CDT 09/10/2023 12:46 PM CDT [facility] - 09/10/2023 1:19 PM CDT Current ADA criteria for Glucose: ?Normal: 70-99 mg/dL ?Impaired Fasting Glucose: 100-125 mg/dL ?Diabetes Mellitus: at or above 126 mg/dL The diagnosis of diabetes must be confirmed on a subsequent day by measuring Fasting Plasma Glucose, 2-hr PG or random plasma glucose (if symptoms are present). Deib Brand MD CHEMISTRY ORDE RADHA [facility] Organization Address City/State/ZIP Co de Phone Number [facility] [address] [place] [address], [facility] * HEMOGRAM (09/10/2023 12:46 PM CDT) [facility] WBC 7.3 3.2 - 11.0 10*9/L 09/10/2023 12:53 PM CDT [facility] RBC 4.62 3.77 - 5.24 10*12/L 09/10/2023 12:53 PM CDT [facility] HGB 13.4 11.2 - 15.5 g/dL 09/10/2023 12:53 PM CDT [facility] HCT 41.7 34.3 - 46.0 % 09/10/2023 12:53 PM CDT [facility] MCV 90.3 81.4 - 99.0 fL 09/10/2023 12:53 PM CDT [facility] MCH 29.0 26.7 - 33.1 pg 09/10/2023 12:53 PM CDT [facility] MCHC 32.1 31.6 - 35.5 g/dL 09/10/2023 12:53 PM CDT [facility] RDW 12.9 11.3 - 14.6 % 09/10/2023 12:53 PM CDT [facility] PLT 338 130 - 375 10*9/L 09/10/2023 12:53 PM CDT [facility] Blood BLOOD SPECIMEN / Unknown Venipuncture / Unknown 09/10/2023 12:46 PM CDT 09/10/2023 12:46 PM CDT Debi Brand MD HEMATOLOGY ORD ERABLES Performing Organization Address City/State/[facility] Co de Phone Number [facility] [address] * VITAMIN D TOTAL (09/10/2023 12:46 PM CDT) [facility] Vitamin D Total 29 27 - 80 ng/mL 09/10/2023 8:53 PM CDT [facility] Blood BLOOD SPECIMEN / Unknown Venipuncture / Unknown 09/10/2023 12:46 PM CDT 09/10/2023 12:46 PM CDT Narrative [facility] - 09/10/2023 8:53 PM CDT ?[facility] Reference Range Deficiency ?<10 ?? ng/mL Insufficiency ?? 10-26 ng/mL Sufficiency ? 27-80 ng/mL Toxicity ?>80 ?? ng/mL Debi Brand MD EC LAB SEND OUT O RDERABLES ABN Performing Organization Address City/[facility]/ZIP Co de Phone Number [facility] [address] [place], [place] [address] * (ABNORMAL) VITAMIN B12 (09/10/2023 12:46 PM CDT) Vitamin B12 912(H) 213 - 816 pg/mL 09/10/2023 3:45 PM CDT [facility] Blood BLOOD SPECIMEN / Unknown Venipuncture / Unknown 09/10/2023 12:46 PM CDT 09/10/2023 12:46 PM CDT Debi Brand MD EC CHEMISTRY ORDE RABLES Performing Organization Address [facility] Co de Phone Number [facility] [address] [place], [place] [phone] documented in this encounter Visit Diagnoses Diagnosis Facial tic Tic disorder, unspecified documented in this encounter Care Teams Voltage Tester Relationship Specialty [place] [address] [place] [phone] PCP - General Family Medicine 09/29/21 documented as of this encounter
--- OUTSIDE RECORDS SUMMARY | 2023-11-12 21:29 | XMS_ITS | Clinical Summary ---
Author Organization [facility] Address [place], [place] [address] Care Team Providers Care Toll Collector Name Role Phone Pcp, No Primary Care Provider Unavailabl e Allergies No known active allergies Medications No known medications Active Problems No known active problems Social History Tobacco Use Types Packs/Day Years [...] Comments Blood Pressure 101/63 02/15/2023 1:21 PM MOTOR VEHIC[employer] OR CARAV[employer] SALESPERSON Pulse 72 02/15/2023 1:21 PM MOTOR VEHIC[employer] OR CARAVAN SALESPERSON Temperature - - Respiratory Rate - - Oxygen Saturation 99% 02/15/2023 1:21 PM MOTOR VEHICLE OR CARAVAN SALESPERSON Inhaled Oxygen Concentration - - Weight - - Height - - Body Mass Index - - Plan of Treatment Health Maintenance Due Date Last Done Comments Well Child Check for age 3-20 04/13/2006 Tdap 05/11/2014 Depression screening for age 12+ 2015 HIV for age 15-65 05/11/2018 HPV series for age 9-26 (1 - 3-dose series) 05/11/2018 Chlamydia for age 16-24 2019 BMI (ht and wt on same day) for age 18+ 05/11/2021 Hepatitis C screening for ag e 18-79 05/11/2021 Tetanus booster 2023 COVID-19 vaccine series ( season) 2023 02/08/2022, 12/21/2020, 11/23/2020 Influenza for age 9-49 10/20/2023 Meningococcal series for age 11-21 Aged Out No longer eligible b ased on patient's age to complete this topic Pneumococcal series for age 6-64 Aged Out No longer eligible b ased on patient's age to complete this topic Care Teams Toll Collector Relationship Specialty Start Date End Date Pcp, No . PCP - General 10/12/21
--- OUTSIDE RECORDS SUMMARY | 2023-11-12 21:29 | XMS_ITS | Encounter Summary ---
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
--- OUTSIDE RECORDS SUMMARY | 2023-11-12 21:29 | XMS_ITS | Clinical Summary ---
Author Organization [facility] Address [address] [address] Phone Care Team Providers Care Ship Fitter Name Role Phone Debi Brand MD Primary Care Provider [phone] Allergies No known active allergies Medications Medication Sig Dispensed Refills Start Date End Date Status cloNIDine (Catapres) 0.1 MG tablet Take 1 tablet by mouth every night at bedtime 60 Tablet 1 07/01/2023 Active escitalopram (Lexapro) 10 MG tablet Take 1 tablet by mouth every night at bedtime in addition to 5mg tab for a total nightly dose of 15mg 60 Tablet 1 07/01/2023 Active escitalopram (Lexapro) 5 MG tablet Take 1 tablet by mouth every night at bedtime in addition to 10mg tab for a total nightly dose of 15mg 60 Tablet 1 07/01/2023 Active Active Problems Problem Noted Date Diagnosed Date Lactose intolerance 07/15/2012 ADHD (attention deficit hyperactivity disorder) Encounters Date Type Department Care Team Description 09/10/2023 12:50 PM CDT ALLIED HEALTH/NURSE VISIT [facility] [address] [place] [address] 09/10/2023 12:10 PM CDT Office Visit [facility] [address] [place] [address] Debi Brand MD Facial tic (Primary Dx) 09/10/2023 Travel from Last 3 Months Immunizations Name Administration Dates Next Due COVID-19 Vaccine: Pfizer Biv alent (TRI-SUCR Z[place]ala) 12+ Yrs ([facility]) 02/08/2022 COVID-19 Vaccine: Pfizer Dos e 1 (Purple- 12+ Yrs) [facility] 11/23/2020 COVID-19 Vaccine: Pfizer Dos e 2 (Purple- 12+ Yrs) [facility] 12/21/2020 DTaP <7 years 01/25/2005 [id number] (Pediarix) 2003,2003,0 2003 DTaP-IPV (Kinrix/Quadracel) 07/20/2008 Hepatitis A, Ped/Adolescent 2 dose 07/20/2008, Hib PRP OMP (PedvaxHib) 2004,2003, Human Papilloma Virus 9 09/28/2020,09/17/2017 Influenza 12/25/2006 Influenza Live Intranasal Quad (Flumist) 011 Influenza Quad Preservative Free 12/27/2016 Influenza Trivalent Live Int ranasal (Flumist) 11/15/2011,01/16/2011,12/11/2007 Influenza Trivalent Preservative Free 03/08/2004 Influenza Trivalent With Preservative 12/12/2006 ,12/08/2004,2003 Influenza Unspecified Formulation 12/25/2006 MMR 07/20/2008,2004 Meningococcal [...] on file Not on file Obstetrics History Last Filed Vital Signs Vital Sign Reading Time Taken Comments Blood Pressure 96/65 09/10/2023 12:01 PM CDT Pulse 64 09/10/2023 12:01 PM CDT Temperature 36.4 ??C (97.5 ??F) 09/10/2023 1 2:01 PM CDT Respiratory Rate 18 01/12/2023 1:08 PM JUNIOR LINUX SYSTEMS ADMINISTRATOR Oxygen Saturation 100% 01/12/2023 1:08 PM JUNIOR LINUX SYSTEMS ADMINISTRATOR Inhaled Oxygen Concentration - - Weight 73.9 kg (162 lb 14.7 oz) 024 12:01 PM CDT Height 172.7 cm (5' 8) 09/10/2023 12:0 1 PM CDT Body Mass Index 24.77 09/10/2023 12:01 PM CDT Plan of Treatment Upcoming Encounters Date Type Department Care Team (Late st Contact Info) Description 01/29/2024 3:00 PM JUNIOR LINUX SYSTEMS ADMINISTRATOR Appointment [facility] Neurology [address] [place] [phone] Joellen Andrade DO [address] [address] Health Maintenance Due Date Last Done Comments Chlamydia Screening 2019 CHILD AND TEEN CHECKUP AGE 3-20 YRS 09/29/2022 09/29/2021, 09/29/2021, 09/29/2021, Additional history exists COVID-19 Vaccine ( season) 2023 02/08/2022, 12/21/2020, 11/23/2020 Influenza Vaccine Seasonal (Standing Order) (#1) 2023 12/27/2016, 01/16/2011, 12/25/2006, Additional history exists TETANUS (Standing Order) 09/19/2025 [...] HPV Vaccine (Standing Order) Completed 09/28/2020, 09/17/2017 Procedures Procedure Name Priority Date/Time Associated Diagnosis Comments MAGNESIUM Routine 09/10/2023 12:46 PM CDT Facial tic COMPREHENSIVE METABOLIC PANEL Routine 09/10/2023 12:46 PM CDT Facial tic HEMOGRAM Routine 09/10/2023 12:46 PM CDT Facial tic VITAMIN D TOTAL Routine 09/10/2023 12:46 PM CDT Facial tic VITAMIN B12 Routine 09/10/2023 12:46 PM CDT Facial tic from Last 3 Months Results * VITAMIN D TOTAL (09/10/2023 12:46 PM CDT) Vitamin D Total 29 27 - 80 ng/mL 09/10/2023 8:53 PM CDT [facility] Blood BLOOD SPECIMEN / Unknown Venipuncture / Unknown 09/10/2023 12:46 PM CDT 09/10/2023 12:46 PM CDT Narrative [facility] - 09/10/2023 8:53 PM CDT ?[facility] Reference Range Deficiency ?<10 ?? ng/mL Insufficiency ?? 10-26 ng/mL Sufficiency ? 27-80 ng/mL Toxicity ?>80 ?? ng/mL Debi Brand MD EC LAB SEND OUT O RDERABLES ABN [facility] [address] [place], [place] [address] * (ABNORMAL) COMPREHENSIVE METABOLIC PANEL (09/10/2023 12:46 PM CDT) Sodium 137 134 - 143 mEq/L 09/10/2023 1:19 PM CDT [facility] Potassium 4.2 3.4 - 5.1 mEq/L 09/10/2023 1:19 PM CDT [facility] Chloride 104 99 - 110 mEq/L 09/10/2023 1:19 PM CDT [facility] Carbon Dioxide 26 19 - 29 mEq/L 09/10/2023 1:19 PM CDT [facility] Anion Gap 7.0 3.0 - 15.0 mEq/L 09/10/2023 1:19 PM CDT [facility] Blood Urea Nitrogen 12 5 - 24 mg/dL 09/10/2023 1:19 PM CDT [facility] Creatinine 1.04(H) 0.40 - 1.00 mg/dL 09/10/2023 1:19 PM CDT [facility] Glomerular Filtration Rate 79 >60 mL/min/1. 73 m*2 09/10/2023 1:[address] [facility] Comment:Risk of cardiovascul ar disease increases when GFR is abnormal; persistently reduced GFR values are a specific indication of CKD. This calculation uses CKD- EPI 2020 equation without adjustment for race; it has not been validated in women. Calcium 9.8 8.4 - 10.5 mg/dL 09/10/2023 1:19 PM T [facility] Glucose 88 70 - 99 mg/dL 09/10/2023 1:19 PM [facility] Protein, Total 7.8 6.0 - 8.0 g/dL 09/10/2023 1:19 PM T [facility] Albumin 4.3 3.5 - 5.0 g/dL 09/10/2023 1:19 PM [facility] Alkaline Phosphatase 76 40 - 150 IU/L 09/10/2023 1:19 PM [facility] Aspartate Aminotransferase 17 10 - 40 IU/L 09/10/2023 1:19 PM [facility] Alanine Aminotransferase 13 6 - 31 IU/L 09/10/2023 1:19 PM [facility] Bilirubin, Total 0.4 0.2 - 1.2 mg/dL 09/10/2023 1:19 PM [facility] Blood BLOOD SPECIMEN / Unknown Venipuncture / Unknown 09/10/2023 12:46 PM CDT 09/10/2023 12:46 PM CDT Narrative [facility] - 09/10/2023 1:19 PM CDT Current ADA criteria for Glucose: ?Normal: 70-99 mg/dL ?Impaired Fasting Glucose: 100-125 mg/dL ?Diabetes Mellitus: at or above 126 mg/dL The diagnosis of diabetes must be confirmed on a subsequent day by measuring Fasting Plasma Glucose, 2-hr PG or random plasma glucose (if symptoms are present). Debi Brand MD EC CHEMISTRY ORDE RABLES Performing Organization Address City/[facility]/ZIP Co de Phone Number [facility] [address] [place], [place] [address] * HEMOGRAM (09/10/2023 12:46 PM CDT) [facility] Signature WBC 7.3 3.2 - 11.0 10*9/L 09/10/2023 12:53 PM CDT [facility] RBC 4.62 3.77 - 5.24 10*12/L 09/10/2023 12:53 PM CDT [facility] HGB 13.4 11.2 - 15.5 g/dL 09/10/2023 12:53 PM CDT [facility] HCT 41.7 34.3 - 46.0 % 09/10/2023 12:53 PM CDT [facility] MCV 90.3 81.4 - 99.0 fL 09/10/2023 12:53 PM CDT [facility] MCH 29.0 26.7 - 33.1 pg 09/10/2023 12:53 PM CDT [facility] MCHC 32.1 31.6 - 35.5 g/dL 09/10/2023 12:53 PM CDT [facility] RDW 12.9 11.3 - 14.6 % 09/10/2023 12:53 PM CDT [facility] PLT 338 130 - 375 10*9/L 09/10/2023 12:53 PM CDT [facility] Blood BLOOD SPECIMEN / Unknown Venipuncture / Unknown 09/10/2023 12:46 PM CDT 09/10/2023 12:46 PM CDT Debi Brand MD EC HEMATOLOGY ORD ERABLES Performing Organization Address City/[facility]/ZIP Co de Phone Number [facility] [id number] [place] [address] * MAGNESIUM (09/10/2023 12:46 PM CDT) Magnesium 2.1 1.8 - 2.7 mg/dL 09/10/2023 3:16 PM CDT [facility] Blood BLOOD SPECIMEN / Unknown Venipuncture / Unknown 09/10/2023 12:46 PM CDT 09/10/2023 12:46 PM CDT Debi Brand MD EC CHEMISTRY ORDE NANCYMARKEL Performing Organization Address City/[facility]/ZIP Co de Phone Number [facility] [address] * (ABNORMAL) VITAMIN B12 (09/10/2023 12:46 PM CDT) Vitamin B12 912(H) 213 - 816 pg/mL 09/10/2023 3:45 PM CDT [facility] Blood BLOOD SPECIMEN / Unknown Venipuncture / Unknown 09/10/2023 12:46 PM CDT 09/10/2023 12:46 PM CDT Debi Brand MD EC CHEMISTRY ORDE RADHA Performing Organization Address City/[facility]/ZIP Co de Phone Number [facility] [phone] [place] [address] from Last 3 Months Care Teams Ship Fitter Relationship Specialty [place] [address] [facility] [place] [phone] PCP - General Family Medicine 09/29/21
--- OUTSIDE RECORDS SUMMARY | 2023-11-12 21:30 | XMS_ITS | Encounter Summary ---
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 (Primary Concern ? Choose from options provided or type in a lloyd word e.g Headache) Neuromuscular [7] Comments Neck, back & chronic pain are not seen by Neurology. Neck & back pain is seen in PM&R or Med Neuro (Neurosurgery). Chronic pain is seen in the Pain Clinic. Referral to be scheduled within: the next available Additional Information: facial tic Reason for Referral: facial tic Reason for Visit * Reason Comments Other Facial Tic Encounter Details Date Type Department Care Team ([facility] st Contact Info) Description 09/10/2023 12:10 PM CDT Office Visit [facility] [address] [place] [address] [place] [address] [place] [phone] Facial tic (Primary Dx) Social History Tobacco Use Types [...] 09/10/2023 1 2:01 PM CDT Respiratory Rate - - Oxygen Saturation - - Inhaled Oxygen Concentration - - Weight 73.9 kg (162 lb 14.7 oz) 024 12:01 PM CDT Height 172.7 cm (5' 8) 09/10/2023 12:0 1 PM CDT Body Mass Index 24.77 09/10/2023 12:01 PM CDT documented in this encounter Functional Status Functional Status Response Date of Assess ment Patient's Vision Adequate to Safely Complete Daily Activities Yes 05/17/2020 Patient's Memory Adequate to Safely Complete Daily Activities Yes 05/17/2020 Cognitive Status Response Date of Assessm ent Patient's Judgment Adequate to Safely Complete Daily Activities Yes 05/17/2020 documented as of this encounter Patient Instructions * Patient Instructions* Debi Brand MD - 09/10/2023 12:10 PM CDT 1. Facial tic At this time, will start with lab work below. Will also refer to Neurology for further work up and investigation. - VITAMIN B12; Future - VITAMIN D TOTAL; Future - HEMOGRAM; Future - COMPREHENSIVE METABOLIC PANEL; Future - MAGNESIUM; Future - APPT WITH NEUROLOGY [facility]EN[facility]AL [facility] documented in this encounter Progress Notes * Debi Brand MD - 09/10/2023 12:10 PM CDT Chief Complaint Patient presents with Other Facial Tic HPI This is a 18 year old female patient. She comes in to the office alone. This patient is establishedto this provider. The patient is here today to discuss: Facial tic: She has had this for about 9 to 10 years but no real work up. It is getting worse. She was told it 'would go away' and that it was related to ADHD. Clonidine did not help. The patient hasa facial tic that is hurting enough that it makes her sore. She reports she feels like there is something more to it as she will have some R sided tickle and cold sensation. She reports it is not rela ned to stress. No known trigger such as foods or sleep. Review Of Systems Pertinent positives and negatives in HPI. Past Medical History: Diagnosis Date ADHD (attention deficit hyperactivity disorder) Social History Tobacco Use Smoking status: Never Smokeless tobacco: Never Substance Use Topics Alcohol use: Not on file No family history on file. Current Outpatient Medications Medication Sig Dispense Refill cloNIDine (Catapres) 0.1 MG tablet Take 1 tablet by mouth every night at bedtime 60 Tablet 1 escitalopram (Lexapro) 10 MG tablet Take 1 tablet by mouth every night at bedtime in addition to 5mg tab for a total nightly dose of 15mg 60 Tablet 1 escitalopram (Lexapro) 5 MG tablet Take 1 tablet by mouth every night at bedtime in addition to 10mg tab for a total nightly dose of 15mg 60 Tablet 1 No current facility-administered medications for this visit. Patient notes the following DSM-IV Depression symptoms on a scale of 0-3: 09/10/2023 12:00 PM PHQ-9, C-SSRS Depressed Mood Not at all Anhedonia Not at all (Typical scores: 0-4=no or minimal; 5-9=minor; 10-14 =mild major depression; 15- 19=moderate major depression; 20-27= severe major depression.) Physical Exam Vitals: 09/10/23 1201 BP: 96/65 Pulse: 64 Temp: 36.4 ??C (97.5 ??F) TempSrc: Temporal Weight: 162 lb 14.7 oz (73.9 kg) Height: 5' 8 (1.727 m) Body mass index is 24.77 kg/m??. Constitutional: healthy, alert, no distress and cooperative Neck: Neck supple. No adenopathy. Thyroid symmetric and non tender. Cardiovascular: Regular Rate, sinus rhythm with S1 and S2. No murmurs, no rubs, no gallops. Respiratory: Clear to auscultation bilaterally with Good diaphragmatic excursion and aeration throughout all macias Musculoskeletal: Grossly normal with no clubbing, cyanosis, or edema Skin: no suspicious lesions or rashes Neurologic: Gait normal for age. Psychiatric: Stated mood of good congruent with pleasant affect; no e/o thoughts to harm or kill self or others Labs/Imaging No results found for this or any previous visit (from the past 12 hour(s)). Assessment/Plan Patient Instructions 1. Facial tic At this time, will start with lab work below. Will also refer to Neurology for further work up and investigation. - VITAMIN B12; Future - VITAMIN D TOTAL; Future - HEMOGRAM; Future - COMPREHENSIVE METABOLIC PANEL; Future - MAGNESIUM; Future - APPT WITH NEUROLOGY [facility]AL [facility] Body mass index is 24.77 kg/m??. Weight Management / BMI follow-up plan:BMI noted and no action needed at this time. Debi Brand MD. documented in this encounter Plan of Treatment Upcoming Encounters Date Type Department Care Team (Late st Contact Info) Description 01/29/2024 3:00 PM HUC Appointment [facility] Neurology [address] [place] [address] Joellen Andrade DO [address] [address] Scheduled Referrals Name Type Priority Associated Diagnoses Orde r Schedule APPT WITH NEUROLOGY [facility] REFERRAL Routine Facial tic Ordered: 09/10/2023 documented as of this encounter Results * MAGNESIUM (09/10/2023 12:46 PM CDT) [facility] Magnesium 2.1 1.8 - 2.7 mg/dL 09/10/2023 3:16 PM CDT [facility] Blood BLOOD SPECIMEN / Unknown Venipuncture / Unknown 09/10/2023 12:46 PM CDT 09/10/2023 12:46 PM CDT Debi Brand MD EC CHEMISTRY ORDE RADHA Performing Organization Address City/State/[facility] Co de Phone Number [facility] [address] [address], [facility] * (ABNORMAL) COMPREHENSIVE METABOLIC PANEL (09/10/2023 12:46 PM CDT) [facility] Sodium 137 134 - 143 mEq/L 09/10/2023 1:19 PM CDT [facility] Potassium 4.2 3.4 - 5.1 mEq/L 09/10/2023 1:19 PM CDT [facility] Chloride 104 99 - 110 mEq/L 09/10/2023 1:19 PM CDT [facility] Carbon Dioxide 26 19 - 29 mEq/L 09/10/2023 1:19 PM CDT [facility] Anion Gap 7.0 3.0 - 15.0 mEq/L 09/10/2023 1:19 PM [facility] Blood Urea Nitrogen 12 5 - 24 mg/dL 09/10/2023 1:19 PM [facility] Creatinine 1.04(H) 0.40 - 1.00 mg/dL 09/10/2023 1:19 PM [facility] Glomerular Filtration Rate 79 >60 mL/min/1. 73 m*2 09/10/2023 1:19 PM [facility] Comment:Risk of cardiovascul ar disease increases when GFR is abnormal; persistently reduced GFR values are a specific indication of CKD. This calculation uses CKD- EPI 2020 equation without adjustment for race; it has not been validated in women. Calcium 9.8 8.4 - 10.5 mg/dL 09/10/2023 1:19 PM [facility] Glucose 88 70 - 99 mg/dL 09/10/2023 1:19 PM [facility] Protein, Total 7.8 6.0 - 8.0 g/dL 09/10/2023 1:19 PM [facility] Albumin 4.3 3.5 - 5.0 g/dL 09/10/2023 1:19 PM [facility] Alkaline Phosphatase 76 40 - 150 IU/L 09/10/2023 1:19 PM [facility] Aspartate Aminotransferase 17 10 - 40 IU/L 09/10/2023 1:19 PM [facility] Alanine Aminotransferase 13 6 - 31 IU/L 09/10/2023 1:19 PM [facility] Bilirubin, Total 0.4 0.2 - 1.2 mg/dL 09/10/2023 1:19 PM [facility] Blood BLOOD SPECIMEN / Unknown Venipuncture / Unknown 09/10/2023 12:46 PM CDT 09/10/2023 12:46 PM CDT Narrative [facility] - 09/10/2023 1:19 PM CDT Current ADA criteria for Glucose: ?Normal: 70-99 mg/dL ?Impaired Fasting Glucose: 100-125 mg/dL ?Diabetes Mellitus: at or above 126 mg/dL The diagnosis of diabetes must be confirmed on a subsequent day by measuring Fasting Plasma Glucose, 2-hr PG or random plasma glucose (if symptoms are present). Debi Brand MD CHEMISTRY ORDE RADHA [facility] Organization Address City/State/ZIP Co de Phone Number [facility] [address] [place] [phone], [facility] * HEMOGRAM (09/10/2023 12:46 PM CDT) WBC 7.3 3.2 - 11.0 10*9/L 09/10/2023 12:53 PM CDT [facility] RBC 4.62 3.77 - 5.24 10*12/L 09/10/2023 12:53 PM CDT [facility] HGB 13.4 11.2 - 15.5 g/dL 09/10/2023 12:53 PM CDT [facility] HCT 41.7 34.3 - 46.0 % 09/10/2023 12:53 PM CDT [facility] MCV 90.3 81.4 - 99.0 fL 09/10/2023 12:53 PM CDT [facility] MCH 29.0 26.7 - 33.1 pg 09/10/2023 12:53 PM CDT [facility] MCHC 32.1 31.6 - 35.5 g/dL 09/10/2023 12:53 PM CDT [facility] RDW 12.9 11.3 - 14.6 % 09/10/2023 12:53 PM CDT [facility] PLT 338 130 - 375 10*9/L 09/10/2023 12:53 PM CDT [facility] Blood BLOOD SPECIMEN / Unknown Venipuncture / Unknown 09/10/2023 12:46 PM CDT 09/10/2023 12:46 PM CDT Debi Brand MD EC HEMATOLOGY ORD ERABLES Performing Organization Address City/[facility]/ZIP Co de Phone Number [facility] [address] * VITAMIN D TOTAL (09/10/2023 12:46 PM CDT) Vitamin D Total 29 27 - 80 ng/mL 09/10/2023 8:53 PM CDT [facility] Blood BLOOD SPECIMEN / Unknown Venipuncture / Unknown 09/10/2023 12:46 PM CDT 09/10/2023 12:46 PM CDT Narrative [facility] - 09/10/2023 8:53 PM CDT ?[facility] Reference Range Deficiency ?<10 ?? ng/mL Insufficiency ?? 10-26 ng/mL Sufficiency ? 27-80 ng/mL Toxicity ?>80 ?? ng/mL Debi Brand MD EC LAB SEND OUT O RDERABLES ABN [facility] [address] [place] [address] * (ABNORMAL) VITAMIN B12 (09/10/2023 12:46 PM CDT) Vitamin B12 912(H) 213 - 816 pg/mL 09/10/2023 3:45 PM CDT [facility] Blood BLOOD SPECIMEN / Unknown Venipuncture / Unknown 09/10/2023 12:46 PM CDT 09/10/2023 12:46 PM CDT Debi Brand MD EC CHEMISTRY JEFFREY GARCIA [facility] Organization Address City/State/ZIP Co de Phone Number [facility] [address] documented in this encounter Visit Diagnoses Diagnosis Facial tic- Primary Tic disorder, unspecified documented in this encounter Care Teams [employer] Science Teacher Relationship Specialty Start [place] [id number] [place] [phone] PCP - General Family Medicine 09/29/21 documented as of this encounter
[2023-11-12] MEDS: ONDANSETRON 2 MG/ML inj 4 MG IVP (22:00)
[2023-11-12] MEDS: KETOROLAC 30 MG/ML inj 15 MG IVP (22:03)
[2023-11-12] MEDS: diphenhydrAMINE 50 MG/ML inj IVP (22:05)
[2023-11-12] MEDS: 0.9 % SODIUM CHLORIDE 1000 ml 1,000 ML IV (22:10)
[2023-11-12 22:55] VITALS: BP 104/57; PULSE 60; RESP 16; O2SAT 100
[2023-11-12 23:28] VITALS: BP 106/60; PULSE 61; RESP 16; TEMP 36.7
== END 2023-11-12 23:29 | disposition home or self-care (01) ==
PROVIDERS: Emergency Provider Emergency Medicine Emergency Medical Services
DX: G43.909 Migraine, unspecified, not intractable, without status migrainosus (principal)
CPT/HCPCS: 96374; 96375; 99284; J1200; J1885; J2405; J7030

== ENCOUNTER 2023-11-14 14:02 | Emergency (ER) | payer BC, SELFPAY ==
[2023-11-14 14:10] VITALS: BP 113/61; PULSE 55; RESP 20; TEMP 37.5; O2SAT 98; BMI 26.5
--- NOTE | 2023-11-14 14:28 | CRLHL7_ITS ---
For Patients: As a result of the Century Cures Act, medical imaging exams and procedure reports are released immediately into your electronic medical record. You may view this report before your referring provider. If you have questions, please contact your health care provider. Indication: HEADACHE Technique: CT of the head without contrast. Coronal and sagittal reformats. Bone and soft tissue windows. Comparison: No prior studies available for comparison at this institution. Findings: No acute intracranial hemorrhage or extra-axial collection. No evidence of acute cortical infarction. No mass effect or midline shift. Normal cerebral volume. The ventricles are normal in size, shape and contour. There is normal vidal and white matter differentiation. The orbital contents are normal. No calvarial fractures. No lytic or sclerotic osseous lesions within the calvarium or skull base. Scalp and other imaged soft tissue structures are normal. Mastoid air cells are clear. Paranasal sinuses are well aerated. Impression: No acute intracranial abnormality. Please note that all CT scans at this facility use dose modulation, iterative reconstruction, and/or weight-based dosing when appropriate to reduce radiation dose to as low as reasonably achievable. Dictated by Jarad Lara MD @ 11/14/2023 3:21:49 PM (Electronically Signed)
--- NOTE | 2023-11-14 14:39 | ED.HA ---
HPI - Headache General Date Seen: 11/14/23 Chief Complaint: Headache/Migraine Stated Complaint: Migraine-here Tues-told to come back if worse Time Seen by Provider: 11/14/23 14:03 Source: patient Mode of arrival: ambulatory Limitations: no limitations History of Present Illness HPI Narrative: Patient is a 18-year-old female presenting to the emergency department for headache. She states the headache 1st started 4 days ago. Symptoms were not getting better dizzy and she eventually came to the emergency department 2 days ago. At that time she is given a migraine cocktail and her symptoms improved and she went home. She is feeling well at discharge but states shortly after she got home headache PND come back. This persisted and she went to urgent care today for evaluation. At urgent care they told her to come to emergency department as they can only offer her Toradol. She states she has had headaches like this a year ago but and nothing else since then. States she she got very dizzy will trying to drive earlier. Denies any numbness or overall feels fatigued. Pain is mostly in her temporal regions and goes behind bilateral eyes. No other concerns noted. Related Data Home Medications ?Medication ?Instructions ?Recorded ?Confirmed escitalopram oxalate 10 mg tablet 15 mg PO DAILY 03/31/23 11/14/23 clonidine HCl 0.1 mg tablet 0.1 mg PO DAILY 11/12/23 11/14/23 Allergies Allergy/AdvReac Type Severity Reaction Status Date / Time No Known Drug Allergies Allergy Verified 11/14/23 14:09 Review of Systems Narrative: Pertinent systems reviewed and were negative unless stated in HPI PFSH PFS Medical History Sinus infection ?J32.9 - Chronic sinusitis, unspecified (ICD-10) Cough ?R05.9 - Cough, unspecified (ICD-10) Social History Smoking Status: Never smoker Do you use any of these nicotine containing products: None Second hand tobacco smoke exposure: No How often do you have a drink containing alcohol: never How often do you have six or more drinks on one occasion: Never AUDIT-C Alcohol total score: 0 Non-prescribed substance use: denies use service: No Exam Narrative: Exam Narrative: Const: Well-nourished, Well-developed, in mild distress Eyes: PERRL, no conjunctival injection, and symmetrical lids HENT: Atraumatic external nose and ears. Moist mucous membranes. Neck: Symmetric, trachea midline, No thyromegaly. CVS: RRR, No murmurs or gallops. Peripheral pulses 2+ and equal in all extremities RESP: Unlabored respiratory effort. Clear to auscultation bilaterally. GI: Nontender/Nondistended, No rebound or guarding. MSK:Extremities w/o deformity, Normal Active ROM Skin: Warm, Dry. No rashes or lesions. Neuro: Normal Muscle tone, No focal neurological deficits. Psych: Awake, Alert, & Oriented x3. Appropriate mood and affect. Const: Vital Signs, click to edit/add: Vital Signs - 24 hr 11/14/23 14:10 Temperature 99.5 F Pulse Rate [Pulse Oximeter] 55 L Respiratory Rate 20 Blood Pressure [Ri ght Upper Arm] 113/61 Pulse Oximetry 98 Oxygen Delivery Me thod Room Air Course Vital Signs Vital signs: Initial Vital Signs Temperature 99.5 F 11/14/23 14:10 Temperature Source Temporal Artery Scan 11/14/23 14:10 Pulse Rate 55 L 11/14/23 14:10 Respiratory Rate 20 11/14/23 14:10 Blood Pressure 113/61 11/14/23 14:10 Blood Pressure Mean 78 11/14/23 14:10 Blood Pressure Position High-Fowlers 11/14/23 14:10 Pulse Oximetry 98 11/14/23 14:10 Oxygen Delivery Method Room Air 11/14/23 14:10 Vital Signs Temperature 99.5 F 11/14/23 14:10 Pulse Rate 55 L 11/14/23 14:10 Respiratory Rate 20 11/14/23 14:10 Blood Pressure 113/61 11/14/23 14:10 Pulse Oximetry 98 11/14/23 14:10 Oxygen Delivery Method Room Air 11/14/23 14:10 Temperature 99.5 F 11/14/23 14:10 Pulse Rate 55 L 11/14/23 14:10 Respiratory Rate 20 11/14/23 14:10 Blood Pressure 113/61 11/14/23 14:10 Pulse Oximetry 98 11/14/23 14:10 Oxygen Delivery Method Room Air 11/14/23 14:10 Medications Administered Medications: Discontinued Medications Generic Name Dose Route Start Last Admin Trade Name Jesús PRN Reason Stop Dose Admin Diphenhydramine HCl 25 mg 11/14/23 14:28 11/14/23 14:55 Diphenhydramine 50 Mg/Ml Inj IVP 11/14/23 14:29 25 mg ONCE ONE Administration Lactated Ringer's 1,000 mls @ 1,000 mls/hr 11/14/23 14:28 11/14/23 16:00 Lactated Ringers 1000 Ml IV 11/14/23 15:27 Infused .Q1H ONE Infusion Ketorolac Tromethamine 15 mg 11/14/23 14:28 11/14/23 14:55 Ketorolac 15 Mg/Ml Inj IVP 11/14/23 14:29 15 mg ONCE ONE Administration Metoclopramide HCl 10 mg 11/14/23 14:28 11/14/23 14:55 Metoclopramide Hcl 5 Mg/Ml Inj IVP 11/14/23 14:29 10 mg ONCE ONE Administration MDM - Headache MDM Narrative Medical decision making narrative: Patient is a 18-year-old female presenting to emergency department for a headache. Will be treated with a migraine cocktail similar last time including Benadryl, Reglan, 1 L of fluids, Toradol. Will also do a CT scan of her head as the headache has been persistent. Patient's symptoms improved after the is migraine cocktail. Head CT reviewed myself the radiologist shows no concerning findings. I will give her a dose of dexamethasone prior to discharge to help prevent possible recurrent headaches. She is agreeable to this plan. She does states she is following up with [facility] medicine physician tomorrow. Imaging Data CT scan - head: Attestation: I have reviewed the pertinent imaging results. Radiologist's impression: No acute intracranial abnormality. Please note that all CT scans at this facility use dose modulation, iterative reconstruction, and/or weight-based dosing when appropriate to reduce radiation dose to as low as reasonably achievable. Dictated by Jarad Lara MD @ 11/14/2023 3:21:49 PM Discharge Plan Discharge Clinical Impression: Migraine Qualifiers: Migraine type: unspecified Status migrainosus presence: without status migrainosus Intractability: not intractable Qualified Code(s): G43.909 - Migraine, unspecified, not intractable, without status migrainosus Patient Disposition: Home, Self-Care Condition: Improved Instructions: Migraine Headache (ED) Additional Instructions: Continue take Tylenol ibuprofen for migrans home as needed. Make sure to follow-up with the physician at to school about 2 migraines. Prescriptions: No Action escitalopram oxalate 10 mg tablet 15 mg PO DAILY clonidine HCl 0.1 mg tablet 0.1 mg PO DAILY Follow Up/Referrals: Provider,Not a Local [Primary Care Provider] - Stand Alone Forms: [employer] Info Instructions
[2023-11-14] MEDS: LACTATED RINGERS 1000 ML 1,000 ML IV (14:50)
[2023-11-14] MEDS: diphenhydrAMINE 50 MG/ML inj 25 MG IVP (14:55)
[2023-11-14] MEDS: KETOROLAC 15 MG/ML inj IVP (14:55)
[2023-11-14] MEDS: METOCLOPRAMIDE HCL 5 MG/ML INJ 10 MG IVP (14:55)
--- OUTSIDE RECORDS SUMMARY | 2023-11-14 14:59 | XMS_ITS | Clinical Summary ---
Author Organization [employer] [facility] [employer] Address [place], [place] [address] Care Team Providers Care Hoisting Engine Operator Name Role Phone Pcp, No Primary Care [...] Comments Blood Pressure 101/63 02/15/2023 1:21 PM DOG DAY CARE ATTENDANT Pulse 72 02/15/2023 1:21 PM DOG DAY CARE ATTENDANT Temperature - - Respiratory Rate - - Oxygen Saturation 99% 02/15/2023 1:21 PM DOG DAY CARE ATTENDANT Inhaled Oxygen Concentration - - Weight - [...] age to complete this topic Care Teams Hoisting Engine Operator Relationship Specialty Start Date End Date Pcp, No . PCP - General 10/12/21
--- OUTSIDE RECORDS SUMMARY | 2023-11-14 14:59 | XMS_ITS | Encounter Summary ---
Author Organization [facility] Address [address] [address] Phone Care Team Providers Care Admitting Representative Name Role Phone Debi Brand MD Primary Care Provider [phone] Reason for Referral * Office Visit (Routine) - New Request Specialty Diagnoses / Procedures Referred By Sharyn lynn Referred To Contact Neurology [place] [address] [place] [phone] [facility] [address] [place] [id number] Referral ID Status Reason Start Date Expiration Date V isits Requested Visits Authorized [id number] New Request 09/10/2023 09/09/2024 1 1 Question [...] Encounter Details Date Type Department Care Team ([facility] st Contact Info) Description 09/10/2023 12:10 PM CDT Office Visit [facility] [address] [place] [address] [place] [address] [place] [phone] Facial tic (Primary Dx) Social History Tobacco [...] st Contact Info) Description 01/29/2024 3:00 PM NURSE CHEMICAL DEPENDENCY Appointment [facility] Neurology [address] [place] [phone] Joellen Andrade DO [address] [address] Scheduled Referrals Name Type Priority Associated Diagnoses Orde r Schedule APPT WITH [facility] REFERRAL Routine Facial tic Ordered: 09/10/2023 documented as of this encounter Results * MAGNESIUM (09/10/2023 12:46 PM CDT) [facility] Magnesium 2.1 1.8 - 2.7 mg/dL 09/10/2023 3:16 PM CDT [facility] Blood BLOOD SPECIMEN / Unknown Venipuncture / Unknown 09/10/2023 12:46 PM CDT 09/10/2023 12:46 PM CDT Debi Brand MD EC CHEMISTRY ORDE RADHA Performing Organization Address City/State/[facility] Co de Phone Number [facility] [address] [address], [facility] * (ABNORMAL) COMPREHENSIVE METABOLIC PANEL (09/10/2023 12:46 PM CDT) [facility] Sodium 137 134 - 143 mEq/L 09/10/2023 1:19 PM CDT [facility] Potassium 4.2 3.4 - 5.1 mEq/L 09/10/2023 1:19 PM CDT [facility] Chloride 104 99 - 110 mEq/L 09/10/2023 1:19 PM CDT [facility] Carbon Dioxide 26 19 - 29 mEq/L 09/10/2023 1:19 PM CDT [facility] Anion Gap 7.0 3.0 - 15.0 mEq/L 09/10/2023 1:19 PM [facility] Blood Urea Nitrogen 12 5 - 24 mg/dL 09/10/2023 1:19 PM [facility] Creatinine 1.04(H) 0.40 - 1.00 mg/dL 09/10/2023 1:19 PM [facility] Glomerular Filtration Rate 79 >60 mL/min/1. 73 m*2 09/10/2023 1:19 PM [facility] Comment:Risk of cardiovascul ar disease increases when GFR is abnormal; persistently reduced GFR values are a specific indication of CKD. This calculation uses CKD- EPI 2020 equation without adjustment for race; it has not been validated in women. Calcium 9.8 8.4 - 10.5 mg/dL 09/10/2023 1:19 PM [facility] Glucose 88 70 - 99 mg/dL 09/10/2023 1:19 PM [facility] Protein, Total 7.8 6.0 - 8.0 g/dL 09/10/2023 1:19 PM [facility] Albumin 4.3 3.5 - 5.0 g/dL 09/10/2023 1:19 PM [facility] Alkaline Phosphatase 76 40 - 150 IU/L 09/10/2023 1:19 PM [facility] Aspartate Aminotransferase 17 10 - 40 IU/L 09/10/2023 1:19 PM [facility] Alanine Aminotransferase 13 6 - 31 IU/L 09/10/2023 1:19 PM [facility] Bilirubin, Total 0.4 0.2 - 1.2 mg/dL 09/10/2023 1:19 PM [facility] Blood BLOOD SPECIMEN / Unknown Venipuncture / Unknown 09/10/2023 12:46 PM CDT 09/10/2023 12:46 PM CDT Narrative [facility] - 09/10/2023 1:19 PM CDT Current ADA criteria for Glucose: ?Normal: 70-99 mg/dL ?Impaired Fasting Glucose: 100-125 mg/dL ?Diabetes Mellitus: at or above 126 mg/dL The diagnosis of diabetes must be confirmed on a subsequent day by measuring Fasting Plasma Glucose, 2-hr PG or random plasma glucose (if symptoms are present). Debi Brand MD CHEMISTRY ORDE RADHA [facility] Organization Address City/State/ZIP Co de Phone Number [facility] [address] [phone], [facility] * HEMOGRAM (09/10/2023 12:46 PM CDT) WBC 7.3 3.2 - 11.0 10*9/L 09/10/2023 12:53 PM CDT [facility] RBC 4.62 3.77 - 5.24 10*12/L 09/10/2023 12:53 PM CDT [facility] HGB 13.4 11.2 - 15.5 g/dL 09/10/2023 12:53 PM CDT [facility] HCT 41.7 34.3 - 46.0 % 09/10/2023 12:53 PM CDT [facility] MCV 90.3 81.4 - 99.0 fL 09/10/2023 12:53 PM CDT [facility] MCH 29.0 26.7 - 33.1 pg 09/10/2023 12:53 PM CDT [facility] MCHC 32.1 31.6 - 35.5 g/dL 09/10/2023 12:53 PM CDT [facility] RDW 12.9 11.3 - 14.6 % 09/10/2023 12:53 PM CDT [facility] PLT 338 130 - 375 10*9/L 09/10/2023 12:53 PM CDT [facility] Blood BLOOD SPECIMEN / Unknown Venipuncture / Unknown 09/10/2023 12:46 PM CDT 09/10/2023 12:46 PM CDT Debi Brand MD EC HEMATOLOGY ORD ERABLES Performing Organization Address City/[facility]/ZIP Co de Phone Number [facility] [address] * VITAMIN D TOTAL (09/10/2023 12:46 PM CDT) Vitamin D Total 29 27 - 80 ng/mL 09/10/2023 8:53 PM CDT [facility] Blood BLOOD SPECIMEN / Unknown Venipuncture / Unknown 09/10/2023 12:46 PM CDT 09/10/2023 12:46 PM CDT Narrative [facility] - 09/10/2023 8:53 PM CDT ?[facility] Reference Range Deficiency ?<10 ?? ng/mL Insufficiency ?? 10-26 ng/mL Sufficiency ? 27-80 ng/mL Toxicity ?>80 ?? ng/mL Debi Brand MD EC LAB SEND OUT O RDERABLES ABN [facility] [address] [place] [address] * (ABNORMAL) VITAMIN B12 (09/10/2023 12:46 PM CDT) Vitamin B12 912(H) 213 - 816 pg/mL 09/10/2023 3:45 PM CDT [facility] Blood BLOOD SPECIMEN / Unknown Venipuncture / Unknown 09/10/2023 12:46 PM CDT 09/10/2023 12:46 PM CDT Debi Brand MD EC CHEMISTRY JEFFREY GARCIA [facility] Organization Address City/State/ZIP Co de Phone Number [facility] [address] documented in this encounter Visit Diagnoses Diagnosis Facial tic- Primary Tic disorder, unspecified documented in this encounter Care Teams Admitting Representative Relationship Specialty Start [place] [id number] [place] [phone] PCP - General Family Medicine 09/29/21 documented as of this encounter
--- OUTSIDE RECORDS SUMMARY | 2023-11-14 14:59 | XMS_ITS | Encounter Summary ---
Author Organization [facility] Address [address] [place] [address] Phone Care Team Providers Care Dry Cure Worker Name Role Phone Debi Brand MD Primary Care Provider [phone] Encounter Details Date Type Department Care Team [...] st Contact Info) Description 01/29/2024 3:00 PM BATTALION FIRE CHIEF Appointment [facility] Neurology [address] [address] Joellen Andrade DO [address] [phone] documented as of this encounter Visit Diagnoses Not on filedocumented in this encounter Care Teams Dry Cure Worker Relationship Specialty Start Date End Date Debi Brand MD [address] [place] [phone] PCP - General Family Medicine 09/29/21 documented as of this encounter
--- OUTSIDE RECORDS SUMMARY | 2023-11-14 14:59 | XMS_ITS | Clinical Summary ---
Author Organization [facility] Address [address] [address] Phone Care Team Providers Care Belt Sewer Name Role Phone Debi Brand MD Primary Care Provider [phone] [phone] Allergies No known active allergies Medications Medication [...] 09/10/2023 12:50 PM CDT ALLIED HEALTH/NURSE VISIT [facility] [address] [place] [address] 09/10/2023 12:10 PM CDT Office Visit [facility] [address] [place] [address] Debi Brand MD Facial tic (Primary Dx) 09/10/2023 Travel from Last 3 Months Immunizations Name Administration Dates Next Due COVID-19 Vaccine: Pfizer Biv alent (TRI-SUCR Z[place]ala) 12+ Yrs ([facility]) 02/08/2022 COVID-19 Vaccine: Pfizer Dos e 1 (Purple- 12+ Yrs) [facility] 11/23/2020 COVID-19 Vaccine: Pfizer Dos e 2 (Purple- 12+ Yrs) [facility] 12/21/2020 DTaP <7 years 01/25/2005 [id number] (Pediarix) 2003,2003,0 2003 DTaP-IPV (Kinrix/Quadracel) 07/20/2008 Hepatitis [...] CDT Respiratory Rate 18 01/12/2023 1:08 PM INTERNET MARKETER Oxygen Saturation 100% 01/12/2023 1:08 PM INTERNET MARKETER Inhaled Oxygen Concentration - - Weight 73.9 kg (162 lb 14.7 oz) 024 12:01 PM CDT Height 172.7 cm (5' 8) 09/10/2023 12:0 1 PM CDT Body Mass Index 24.77 09/10/2023 12:01 PM CDT Plan of Treatment Upcoming Encounters Date Type Department Care Team (Late st Contact Info) Description 01/29/2024 3:00 PM INTERNET MARKETER Appointment [facility] Neurology [address] [place] [phone] Joellen nAdrade DO [address] [address] Health Maintenance Due Date Last Done Comments [...] - 80 ng/mL 09/10/2023 8:[address] [facility] Blood BLOOD SPECIMEN / Unknown Venipuncture / Unknown 09/10/2023 12:46 PM CDT 09/10/2023 12:[address] [facility] - 09/10/2023 8:53 PM CDT ?[facility] Reference Range Deficiency ?<10 ?? ng/mL Insufficiency ?? 10-26 ng/mL Sufficiency ? 27-80 ng/mL Toxicity ?>80 ?? ng/mL Debi Brand MD EC LAB SEND OUT O RDERABLES ABN [facility] [address] [place], [place] [address] * (ABNORMAL) COMPREHENSIVE METABOLIC PANEL (09/10/2023 12:46 PM CDT) Sodium 137 134 - 143 mEq/L 09/10/2023 1:19 PM CDT [facility] Potassium 4.2 3.4 - 5.1 mEq/L 09/10/2023 1:19 PM CDT [facility] Chloride 104 99 - 110 mEq/L 09/10/2023 1:19 PM CDT [facility] Carbon Dioxide 26 19 - 29 mEq/L 09/10/2023 1:19 PM CDT [facility] Anion Gap 7.0 3.0 - 15.0 mEq/L 09/10/2023 1:19 PM CDT [facility] Blood Urea Nitrogen 12 5 - 24 mg/dL 09/10/2023 1:19 PM CDT [facility] Creatinine 1.04(H) 0.40 - 1.00 mg/dL 09/10/2023 1:19 PM CDT [facility] Glomerular Filtration Rate 79 >60 mL/min/1. [...] - 10.5 mg/dL 09/10/2023 1:19 PM T [facility] Glucose 88 70 - 99 mg/dL 09/10/2023 1:19 PM [facility] Protein, Total 7.8 6.0 - 8.0 g/dL 09/10/2023 1:19 PM T [facility] Albumin 4.3 3.5 - 5.0 g/dL 09/10/2023 1:19 PM [facility] Alkaline Phosphatase 76 40 - 150 IU/L 09/10/2023 1:19 PM [facility] Aspartate Aminotransferase 17 10 - 40 IU/L 09/10/2023 1:19 PM [facility] Alanine Aminotransferase 13 6 - 31 IU/L 09/10/2023 1:19 PM [facility] Bilirubin, Total 0.4 0.2 - 1.2 mg/dL 09/10/2023 1:19 PM [facility] Blood BLOOD SPECIMEN / Unknown Venipuncture / Unknown 09/10/2023 12:46 PM CDT 09/10/2023 12:46 PM CDT Narrative [facility] - 09/10/2023 1:19 PM [...] EC CHEMISTRY ORDE RABLES Performing Organization Address City/[facility]/ZIP Co de Phone Number [facility] [address] [place], [place] [address] * HEMOGRAM (09/10/2023 12:46 PM CDT) [facility] Signature WBC 7.3 3.2 - 11.0 10*9/L 09/10/2023 12:53 PM CDT [facility] RBC 4.62 3.77 - 5.24 10*12/L 09/10/2023 12:53 PM CDT [facility] HGB 13.4 11.2 - 15.5 g/dL 09/10/2023 12:53 PM CDT [facility] HCT 41.7 34.3 - 46.0 % 09/10/2023 12:53 PM CDT [facility] MCV 90.3 81.4 - 99.0 fL 09/10/2023 12:53 PM CDT [facility] MCH 29.0 26.7 - 33.1 pg 09/10/2023 12:53 PM CDT [facility] MCHC 32.1 31.6 - 35.5 g/dL 09/10/2023 12:53 PM CDT [facility] RDW 12.9 11.3 - 14.6 % 09/10/2023 12:53 PM CDT [facility] PLT 338 130 - 375 10*9/L 09/10/2023 12:53 PM CDT [facility] Blood BLOOD SPECIMEN / Unknown Venipuncture / Unknown 09/10/2023 12:46 PM CDT 09/10/2023 12:46 PM CDT Debi Brand MD EC HEMATOLOGY ORD ERABLES Performing Organization Address City/[facility]/ZIP Co de Phone Number [facility] [address] [place] [address] * MAGNESIUM (09/10/2023 12:46 PM CDT) Magnesium 2.1 1.8 - 2.7 mg/dL 09/10/2023 3:[address] [facility] Blood BLOOD SPECIMEN / Unknown Venipuncture / Unknown 09/10/2023 12:46 PM CDT 09/10/2023 12:46 PM CDT Debi Brand MD EC CHEMISTRY ORDE NANCYMARKEL Performing Organization Address City/[facility]/ZIP Co de Phone Number [facility] [address] * (ABNORMAL) VITAMIN B12 (09/10/2023 12:46 PM CDT) Vitamin B12 912(H) 213 - 816 pg/mL 09/10/2023 3:[address] [facility] Blood BLOOD SPECIMEN / Unknown Venipuncture / Unknown 09/10/2023 12:46 PM CDT 09/10/2023 12:46 PM CDT Debi Brand MD EC CHEMISTRY ORDE RADHA Performing Organization Address City/[facility]/ZIP Co de Phone Number [facility] [phone] [place] [address] from Last 3 Months Care Teams Belt Sewer Relationship Specialty [place] [address] [facility] [place] [phone] PCP - General Family Medicine 09/29/21
--- OUTSIDE RECORDS SUMMARY | 2023-11-14 14:59 | XMS_ITS | Encounter Summary ---
Author Organization [facility] Address [address] [place] [address] Phone Care Team Providers Care Wet Process Assistant Head Miller Name Role Phone Debi Brand MD Primary Care Provider [phone] Encounter Details Date Type Department Care Team (Late st Contact Info) Description 09/10/2023 12:50 PM CDT ALLIED HEALTH/NURSE VISIT [facility] Lab [address] [place] [address] Social History Tobacco Use Types [...] st Contact Info) Description 01/29/2024 3:00 PM DIORAMIST Appointment [facility] Neurology [address] [address] Joellen Andrade DO [address] [phone] documented as of this encounter Procedures Procedure [...] - 2.7 mg/dL 09/10/2023 3:16 PM CDT [facility] Blood BLOOD SPECIMEN / Unknown Venipuncture / Unknown 09/10/2023 12:46 PM CDT 09/10/2023 12:46 PM CDT Debi Brand MD EC CHEMISTRY JEFFREY GARCIA [facility] [address] [place] [address], [place] * (ABNORMAL) COMPREHENSIVE METABOLIC PANEL (09/10/2023 12:46 PM CDT) Sodium 137 134 - 143 mEq/L 09/10/2023 1:[address] [facility] Potassium 4.2 3.4 - 5.1 mEq/L 09/10/2023 1:[address] [facility] Chloride 104 99 - 110 mEq/L 09/10/2023 1:19 PM [address] [facility] Carbon Dioxide 26 19 - 29 mEq/L 09/10/2023 1:19 [address] [facility] Anion Gap 7.0 3.0 - 15.0 mEq/L 09/10/2023 1:19 PM CD[address] [facility] Blood Urea Nitrogen 12 5 - 24 mg/dL 09/10/2023 1:19 PM [address] [facility] Creatinine 1.04(H) 0.40 - 1.00 mg/dL 09/10/2023 1:19 [address] [facility] Glomerular Filtration Rate 79 >60 mL/min/1. 73 m*2 09/10/2023 1:19 PM [address] [facility] Comment:Risk of cardiovascul ar disease increases when GFR is abnormal; persistently reduced GFR values are a specific indication of CKD. This calculation uses CKD- EPI 2020 equation without adjustment for race; it has not been validated in women. Calcium 9.8 8.4 - 10.5 mg/dL 09/10/2023 1:19 PM [address] [facility] Glucose 88 70 - 99 mg/dL 09/10/2023 1:19 PM [address] [facility] Protein, Total 7.8 6.0 - 8.0 g/dL 09/10/2023 1:19 PM [address] [facility] Albumin 4.3 3.5 - 5.0 g/dL 09/10/2023 1:19 [address] [facility] Alkaline Phosphatase 76 40 - 150 IU/L 09/10/2023 1:19 PM CD[address] [facility] Aspartate Aminotransferase 17 10 - 40 IU/L 09/10/2023 1:19 PM CD[address] [facility] Alanine Aminotransferase 13 6 - 31 IU/L 09/10/2023 1:19 PM [address] [facility] Bilirubin, Total 0.4 0.2 - 1.2 mg/dL 09/10/2023 1:19 PM CD[address] [facility] Blood BLOOD SPECIMEN / Unknown Venipuncture / Unknown 09/10/2023 12:46 PM CDT 09/10/2023 12:[address] [facility] - 09/10/2023 1:19 PM CDT Current ADA criteria for Glucose: ?Normal: 70-99 mg/dL ?Impaired Fasting Glucose: 100-125 mg/dL ?Diabetes Mellitus: at or above 126 mg/dL The diagnosis of diabetes must be confirmed on a subsequent day by measuring Fasting Plasma Glucose, 2-hr PG or random plasma glucose (if symptoms are present). Debi Brand MD CHEMISTRY ORDE RADHA [facility] Organization Address City/State/ZIP Co de Phone Number [facility] [address] [place] [address], [place] * HEMOGRAM (09/10/2023 12:46 PM CDT) [facility] WBC 7.3 3.2 - 11.0 10*9/L 09/10/2023 12:53 PM CDT [facility] RBC 4.62 3.77 - 5.24 10*12/L 09/10/2023 12:53 PM CDT [facility] HGB 13.4 11.2 - 15.5 g/dL 09/10/2023 12:53 PM CDT [facility] HCT 41.7 34.3 - 46.0 % 09/10/2023 12:53 PM CDT [facility] MCV 90.3 81.4 - 99.0 fL 09/10/2023 12:53 PM CDT [facility] MCH 29.0 26.7 - 33.1 pg 09/10/2023 12:53 PM CDT [facility] MCHC 32.1 31.6 - 35.5 g/dL 09/10/2023 12:53 PM CDT [facility] RDW 12.9 11.3 - 14.6 % 09/10/2023 12:53 PM CDT [facility] PLT 338 130 - 375 10*9/L 09/10/2023 12:53 PM CDT [facility] Blood BLOOD SPECIMEN / Unknown Venipuncture / Unknown 09/10/2023 12:46 PM CDT 09/10/2023 12:46 PM CDT Debi Brand MD HEMATOLOGY ORD ERABLES Performing Organization Address City/State/[facility] Co de Phone Number [facility] [address] * VITAMIN D TOTAL (09/10/2023 12:46 PM CDT) [facility] Vitamin D Total 29 27 - 80 ng/mL 09/10/2023 8:53 PM CDT [facility] Blood BLOOD SPECIMEN / Unknown Venipuncture / Unknown 09/10/2023 12:46 PM CDT 09/10/2023 12:46 PM CDT Narrative [facility] - 09/10/2023 8:53 PM CDT ?[facility] Reference Range Deficiency ?<10 ?? ng/mL Insufficiency ?? 10-26 ng/mL Sufficiency ? 27-80 ng/mL Toxicity ?>80 ?? ng/mL Debi Brand MD EC LAB SEND OUT O RDERABLES ABN Performing Organization Address City/[facility]/ZIP Co de Phone Number [facility] [address] [place], [place] [address] * (ABNORMAL) VITAMIN B12 (09/10/2023 12:46 PM CDT) Vitamin B12 912(H) 213 - 816 pg/mL 09/10/2023 3:45 PM CDT [facility] Blood BLOOD SPECIMEN / Unknown Venipuncture / Unknown 09/10/2023 12:46 PM CDT 09/10/2023 12:46 PM CDT Debi Brand MD EC CHEMISTRY ORDE RABLES Performing Organization Address [facility] Co de Phone Number [facility] [address] [place], [place] [address] documented in this encounter Visit Diagnoses Diagnosis Facial tic Tic disorder, unspecified documented in this encounter Care Teams Wet Process Assistant Head Miller Relationship Specialty [place] [address] [place] [phone] PCP - General Family Medicine 09/29/21 documented as of this encounter
[2023-11-14] MEDS: dexAMETHasone 10 MG/ML inj IV (16:21)
[2023-11-14 16:25] VITALS: PULSE 56; RESP 16; O2SAT 100
== END 2023-11-14 16:29 | disposition home or self-care (01) ==
PROVIDERS: Emergency Provider Student in an Organized Health Care Education/Training Program
DX: G43.909 Migraine, unspecified, not intractable, without status migrainosus (principal)
CPT/HCPCS: 70450; 96361; 96374; 96375; 99282; 99284; 99285; J1100; J1200; J1885; J2765; J7120

== ENCOUNTER 2024-04-17 17:32 | Emergency (ER) | payer BC, SELFPAY ==
--- OUTSIDE RECORDS SUMMARY | 2024-04-17 17:35 | XMS_ITS | Clinical Summary ---
Author Organization [facility] Address [address] [address] Phone Care Team Providers Care Reception Clerk Name Role Phone Debi Brand MD Primary Care Provider [phone] [phone] Allergies No known active allergies Medications escitalopram (Lexapro) 10 MG tablet Take 1 tablet by mouth every night at bedtime in addition to 5mg tab for total daily dose of 15mg 90 Tablet 02/14/2024 3:01 PM WATER ENGINEER 4 Active escitalopram (Lexapro) 5 MG tablet Take 1 tablet by mouth every night in addition to 10mg tab for total daily dose of 15mg 90 Tablet 02/14/2024 3:01 PM WATER ENGINEER 4 Active topiramate (Topamax) 25 MG tabletIndication s:Facial tic,Migraine without aura and with status migrainosus, not intractable Do not crush. Start by taking 1-25 mg tab at bedtime x 1 week. If no side effects, can increase to 2-25 mg tabs at bedtime. 60 Tablet 5 4 Active Active Problems Problem Noted Date Diagnosed Date Lactose intolerance 07/15/2012 ADHD (attention deficit hyperactivity disorder) Encounters Date Type Department Care Team Description 02/06/2024 3:30 PM WATER ENGINEER Ancillary Procedure [facility] MRI [address] [place] [phone] Joellen Andrade DO Facial tic; Migraine without aura and with status migrainosus, not intractable 02/03/2024 Travel 01/29/2024 4:00 PM WATER ENGINEER ALLIED HEALTH/NURSE VISIT [facility] Laboratory [address] [place] [address] Lab, [facility] 01/29/2024 3:00 PM WATER ENGINEER Office Visit [facility] Neurology [address] [place] [address] Joellen Andrade, DO Facial tic (Primary Dx); Migraine without aura and with status migrainosus, not intractable 01/22/2024 Travel from Last 3 Months Immunizations Name Administration Dates Next Due COVID-19 Vaccine: Pfizer Biv alent (TRI-SUCR [place]) 12+ Yrs (Imm Clinic) 02/08/2022 COVID-19 Vaccine: Pfizer Dos e 1 (Purple- 12+ Yrs) [facility] 11/23/2020 COVID-19 Vaccine: Pfizer Dos e 2 (Purple- 12+ Yrs) [facility] 12/21/2020 DTaP <7 years 01/25/2005 MBuG-VxtA-NMR (Pediarix) 2003,2003,0 2003 DTaP-IPV (Kinrix/Quadracel) 07/20/2008 Hepatitis [...] Date Comments ADHD (attention deficit hyperactivity disorder) Family History Medical History Relation Comments Cardiovascular Disease Father Relation Status Comments Father Social History Tobacco Use Types Packs/Day Years [...] things needed for daily living? No 12/31/2020 Comments No Sex and Gender Information Value Date Recorded Sex Assigned at Female 09/27/2020 6:18 PM CDT Legal Sex Female 7:40 PM WATER ENGINEER Gender Identity Female 09/27/2020 6:18 PM CDT Sexual Orientation Not on file Obstetrics History Last Filed Vital Signs Vital Sign Reading Time Taken Comments Blood Pressure 110/74 01/29/2024 2:58 PM WATER ENGINEER Pulse 71 01/29/2024 2:58 PM WATER ENGINEER Temperature 36.4 C (97.5 F) 09/10/2023 12:01 PM CDT Respiratory Rate 18 01/12/2023 1:08 PM WATER ENGINEER Oxygen Saturation 100% 01/12/2023 1:08 PM WATER ENGINEER Inhaled Oxygen Concentration - - Weight 80.6 kg (177 lb 11.1 oz) 01/29/2024 2:58 PM WATER ENGINEER Height 172.7 cm (5' 8) 01/29/2024 2:58 PM WATER ENGINEER Body Mass Index 27.02 01/29/2024 2:58 PM WATER ENGINEER Plan of Treatment Upcoming Encounters Date Type Department Care Team ([facility] st Contact Info) Description 05/22/2024 11:00 AM CDT Appointment [facility] Neurology [address] [address] Joellen Andrade DO [address] [address] Health Maintenance Due Date Last Done Comments Chlamydia Screening 2019 CHILD AND TEEN CHECKUP AGE 3-20 YRS 09/29/2022 09/29/2021, 09/29/2021, 09/29/2021, Additional history exists COVID-19 Vaccine ( season) 2023 02/08/2022, 12/21/2020, 11/23/2020 Influenza Vaccine Seasonal (Standing Order) (#1) 2023 12/27/2016, 11/15/2011, 01/16/2011, Additional history exists TETANUS (Standing Order) 09/19/2025 016, 01/25/2005, 2003, Additional history exists Hepatitis B Vaccine (Standing Order) Completed 2003, 2003, 2003 Pneumococcal/PCV20 Vaccine: Pediatrics (2-5 yrs) and At-Risk Patients (6-49 yrs) (Standing Order) Aged Out 2003, 2003, 2003 No longer eligible based on patient's age to complete this topic PERTUSSIS (Standing Order) Completed 09/19, 07/20/2008, 01/25/2005, Additional history exists HPV Vaccine (Standing Order) Completed 09/28/2020, 09/17/2017 Meningococcal B Vaccine (Standing Order) Completed 11/23/2020, 09/28/2020 Procedures Procedure Name Priority Date/Time Associated Diagnosis Comments MR BRAIN WO CONTRAST Routine 02/06/2024 3:51 PM WATER ENGINEER Facial tic Migraine without aura and with status migrainosus, not intractable METHYLMALONIC ACID (MMA), QUANTITATIVE, PLASMA Routine 01/29/2024 4:03 PM WATER ENGINEER Facial tic HOMOCYSTEINE Routine 01/29/2024 4:03 PM WATER ENGINEER Facial tic FOLATE Routine 01/29/2024 4:03 PM WATER ENGINEER Facial tic THIAMIN, WHOLE BLOOD (VIT B1) Routine 01/29/2024 4:03 PM WATER ENGINEER Facial tic COPPER, SERUM Routine 01/29/2024 4:03 PM WATER ENGINEER Facial tic CERULOPLASMIN Routine 01/29/2024 4:03 PM WATER ENGINEER Facial tic ANTINUCLEAR ANTIBODIES, SCREEN Routine 01/29/2024 4:03 PM WATER ENGINEER Facial tic from Last 3 Months Results * MR BRAIN WO CONTRAST (02/06/2024 3:51 PM WATER ENGINEER) Anatomical Region Laterality Modality Head Magnetic Resonan ce 02/06/2024 3:51 PM WATER ENGINEER Narrative 02/07/2024 9:41 AM WATER ENGINEER This document is currently in Final Status Exam MR BRAIN WO CONTRAST INDICATION: right lower facial tic x 14 years, paresthesias in all extremities, h/o migraines; COMPARISON: CT head of 11/14/2023. FINDINGS: Nothing on diffusion to suggest acute to subacute evolving ischemia/infarction. Maintenance of the major intracranial arterial flow voids. Orbits are unremarkable. Pituitary gland is grossly normal in appearance. Paranasal sinuses are clear. Mastoid air cells are clear. IMPRESSION: 1. Nothing on diffusion to suggest acute to subacute evolving ischemia/infarction. 2. Remainder negative and please see remain above comments. Electronically Signed: Lito Meyers 02/07/2024 9:41 AM Procedure Note Lito Meyers MD - 02/07/2024 This document is currently in Final Status Exam MR BRAIN WO CONTRAST INDICATION: right lower facial tic x 14 years, paresthesias in allextremities, h/o migraines; COMPARISON: CT head of 11/14/2023. FINDINGS: Nothing on diffusion to suggest acute to subacute evolvingischemia/infarction. Maintenance of the major intracranial arterial flow voids. Orbits areunremarkable. Pituitary gland is grossly normal in appearance. Paranasalsinuses are clear. Mastoid air cells are clear. IMPRESSION: 1. Nothing on diffusion to suggest acute to subacute evolvingischemia/infarction. 2. Remainder negative and please see remain above comments. Electronically Signed: Lito Meyers 02/07/2024 9:41 AM us Joellen Andrade DO MRI ORDERABLES Final R esult * METHYLMALONIC ACID (MMA), QUANTITATIVE, PLASMA (01/29/2024 4:03 PM WATER ENGINEER) Methylmalonic Acid, QN, P 0.13 <=0.40 nmol/mL 02/03/2024 7:02 AM WATER ENGINEER [facility] Comment: ADDITIONAL INFORMATION This test was developed and its performance characteristics determined by [facility] in a manner consistent with CLIA requirements. This test has not been cleared or approved by the U.S. Food and Drug Administration. Test Performed by: [facility] - [address] [address] Dry Paste Supervisor: Dorian Julian Ph.D.; CLIA# [id number] Blood BLOOD SPECIMEN / Unknown Venipuncture / Unknown 01/29/2024 4:03 PM WATER ENGINEER 01/29/2024 4:26 PM WATER ENGINEER us Joellen Andrade DO LAB SEND OUT ORDER[place] [address], [facility] [phone] * THIAMIN, WHOLE BLOOD (VIT B1) (01/29/2024 4:03 PM WATER ENGINEER) Pathologist [facility] Thiamin (Vitamin B1), Whole Blood 92 70 - 180 nmol/L 02/01/2024 8:37 AM WATER ENGINEER [facility] Comment: ADDITIONAL INFORMATION This test was developed and its performance characteristics determined by [facility] in a manner consistent with CLIA requirements. This test has not been cleared or approved by the U.S. Food and Drug Administration. Test Performed by: [facility] [place] [address] Dry Paste Supervisor: Dorian Julian Ph.D.; CLIA# [id number] Blood WHOLE BLOOD SPECIMEN / Unknown Venipuncture / Unknown 01/29/2024 4:03 PM WATER ENGINEER 01/29/2024 4:24 PM WATER ENGINEER Joellen Andrade DO LAB SEND OUT ORDERABLE S Final Result [address] [phone] * ANTINUCLEAR ANTIBODIES, SCREEN (01/29/2024 4:03 PM WATER ENGINEER) [facility] Antinuclear Antibodies 0.4 <=1.0 (Negative ) U 01/31/2024 9:16 PM WATER ENGINEER [facility] Comment: ADDITIONAL INFORMATION Method: Enzyme-linked immunoassay using HEp-2 nuclear extract supplemented with purified antigens. Test Performed by: [facility] [place] [address] Dry Paste Supervisor: Dorian Julian Ph.D.; CLIA# [id number] Blood BLOOD SPECIMEN / Unknown Venipuncture / Unknown 01/29/2024 4:03 PM WATER ENGINEER 01/29/2024 4:26 PM WATER ENGINEER us Joellen James Callenius DO EC CHEMISTRY ORDERABLES F inal Result Performing Organization Address City/[facility]/ZIP Co de Phone Number [address] [phone] * HOMOCYSTEINE (01/29/2024 4:03 PM WATER ENGINEER) Homocysteine 5 5 - 15 uMol/L 01/30/2024 3:43 PM WATER ENGINEER [facility] Blood VENOUS CATHETER / Unknown Venipuncture / Unknown 01/29/2024 4:03 PM WATER ENGINEER 01/29/2024 4:24 PM WATER ENGINEER Joellen E Callenius DO EC CHEMISTRY ORDERABLES F inal Result Performing Organization Address [facility] de Phone Number [facility] [address] [place] [address] * COPPER, SERUM (01/29/2024 4:03 PM WATER ENGINEER) Pathologist [facility] Copper 119 77 - 206 mcg/dL 01/31/2024 7:43 PM WATER ENGINEER [facility] Comment: ADDITIONAL INFORMATION This test was developed and its performance characteristics determined by [facility] in a manner consistent with CLIA requirements. This test has not been cleared or approved by the U.S. Food and Drug Administration. Test Performed by: [facility] - [address] [address] Dry Paste Supervisor: Dorian Julian Ph.D.; CLIA# [id number] Blood BLOOD SPECIMEN / Unknown Venipuncture / Unknown 01/29/2024 4:03 PM WATER ENGINEER 01/29/2024 4:26 PM WATER ENGINEER Joellen Ramirez Callenius DO EC LAB SEND OUT ORDERABLE S Final Result Performing Organization Address [facility]/ZIP Co de Phone Number [address] [phone] * CERULOPLASMIN (01/29/2024 4:03 PM WATER ENGINEER) Ceruloplasmin 26.9 20.0 - 51.0 mg/dL 02/02/2024 11:16 AM WATER ENGINEER [facility] Comment: Test Performed by: [facility] - [facility] [address] [place] [address] Dry Paste Supervisor: Dorian Julian Ph.D.; CLIA# [id number] Blood BLOOD SPECIMEN / Unknown Venipuncture / Unknown 01/29/2024 4:03 PM WATER ENGINEER 01/29/2024 4:26 PM WATER ENGINEER us Joellen E Callenius DO EC LAB SEND OUT ORDERABLE S Final Result Performing Organization Address City/[facility]/ZIP Co de Phone Number [facility] [address] [place], [place] [address] [phone] * FOLATE, SERUM (01/29/2024 4:03 PM WATER ENGINEER) Folate 12.9 7.0 - 31.4 ng/mL 01/29/2024 6:29 PM WATER ENGINEER [facility] Blood BLOOD SPECIMEN / Unknown Venipuncture / Unknown 01/29/2024 4:03 PM WATER ENGINEER 01/29/2024 4:26 PM WATER ENGINEER Narrative [facility] - 01/29/2024 6:29 PM WATER ENGINEER Folate Reference Range Normal: 7.0 - 31.4 ng/mL Indeterminate: 3.5 - 6.9 ng/mL Deficient: <3.5 ng/mL us Joellen E Callenius DO EC CHEMISTRY ORDERABLES F inal Result [facility] [address] [address], [facility] from Last [address] [place] [address] [facility] Address: [facility] [address] [place] [address] * Guarantor: BARBIE GONZALEZ Account Type Relation to Patient Date of Phone Billing Address Pharmacy [address] [id number] [address] [id number] [facility] [employer] ([place] [employer]) [employer] / APPLAUSE [place] [id number] Care Teams Reception Clerk Relationship Specialty Start Date End Date Debi Brand MD [address] [place] [address] [place] [address] PCP - General Family Medicine 09/29/21
[2024-04-17 18:17] VITALS: BP 107/73; PULSE 93; RESP 16; TEMP 37.7; O2SAT 97; BMI 26.6
--- OUTSIDE RECORDS SUMMARY | 2024-04-17 19:48 | XMS_ITS | Clinical Summary ---
Author Organization [facility] Address [address] [address] Phone Care Team Providers Care Firesetter Name Role Phone Debi Brand MD Primary Care Provider [phone] Allergies No known active allergies Medications escitalopram (Lexapro) 10 MG tablet Take 1 tablet by mouth every night at bedtime in addition to 5mg tab for total daily dose of 15mg 90 Tablet 02/14/2024 3:01 PM ADULT EDUCATION PROFESSIONAL 4 Active escitalopram (Lexapro) 5 MG tablet Take 1 tablet by mouth every night in addition to 10mg tab for total daily dose of 15mg 90 Tablet 02/14/2024 3:01 PM ADULT EDUCATION PROFESSIONAL 4 Active topiramate (Topamax) 25 MG tabletIndication [...] Department Care Team Description 02/06/2024 3:30 PM ADULT EDUCATION PROFESSIONAL Ancillary Procedure [facility] IMAGING RADIOLOGY MRI [address] [place] [id number] Joellen Andrade DO Facial tic; Migraine without aura and with status migrainosus, not intractable 02/03/2024 Travel 01/29/2024 4:00 PM ADULT EDUCATION PROFESSIONAL ALLIED HEALTH/NURSE VISIT [facility] [address] [place] [address] Lab, [facility] 01/29/2024 3:00 PM ADULT EDUCATION PROFESSIONAL Office Visit [facility] Neurology [address] [place] [address] Joellen Andrade, DO Facial tic (Primary Dx); Migraine without aura and with status migrainosus, not intractable 01/22/2024 Travel from Last 3 Months Immunizations Name Administration Dates Next Due COVID-19 Vaccine: Pfizer Biv alent (TRI-SUCR Zavala) 12+ Yrs (Imm Clinic) 02/08/2022 COVID-19 Vaccine: Pfizer Dos e 1 (Purple- 12+ Yrs) [facility] 11/23/2020 COVID-19 Vaccine: Pfizer Dos e 2 (Purple- 12+ Yrs) [facility] 12/21/2020 DTaP <7 years 01/25/2005 [id number] (Pediarix) 2003,2003,0 2003 DTaP-IPV (Kinrix/Quadracel) 07/20/2008 Hepatitis [...] PM CDT Legal Sex Female 7:40 PM ADULT EDUCATION PROFESSIONAL Gender Identity Female 09/27/2020 6:18 PM CDT Sexual Orientation Not on file Obstetrics History Last Filed Vital Signs Vital Sign Reading Time Taken Comments Blood Pressure 110/74 01/29/2024 2:58 PM ADULT EDUCATION PROFESSIONAL Pulse 71 01/29/2024 2:58 PM ADULT EDUCATION PROFESSIONAL Temperature 36.4 C (97.5 F) 09/10/2023 12:01 PM CDT Respiratory Rate 18 01/12/2023 1:08 PM ADULT EDUCATION PROFESSIONAL Oxygen Saturation 100% 01/12/2023 1:08 PM ADULT EDUCATION PROFESSIONAL Inhaled Oxygen Concentration - - Weight 80.6 kg (177 lb 11.1 oz) 01/29/2024 2:58 PM ADULT EDUCATION PROFESSIONAL Height 172.7 cm (5' 8) 01/29/2024 2:58 PM ADULT EDUCATION PROFESSIONAL Body Mass Index 27.02 01/29/2024 2:58 PM ADULT EDUCATION PROFESSIONAL Plan of Treatment Upcoming Encounters Date Type Department Care Team ([facility] st Contact Info) Description 05/22/2024 11:00 AM CDT Appointment [facility] Neurology [address] [id number] Joellen Andrade DO [address] [address] Health Maintenance Due Date Last Done Comments [...] BRAIN WO CONTRAST Routine 02/06/2024 3:51 PM ADULT EDUCATION PROFESSIONAL Facial tic Migraine without aura and with status migrainosus, not intractable METHYLMALONIC ACID (MMA), QUANTITATIVE, PLASMA Routine 01/29/2024 4:03 PM ADULT EDUCATION PROFESSIONAL Facial tic HOMOCYSTEINE Routine 01/29/2024 4:03 PM ADULT EDUCATION PROFESSIONAL Facial tic FOLATE Routine 01/29/2024 4:03 PM ADULT EDUCATION PROFESSIONAL Facial tic THIAMIN, WHOLE BLOOD (VIT B1) Routine 01/29/2024 4:03 PM ADULT EDUCATION PROFESSIONAL Facial tic COPPER, SERUM Routine 01/29/2024 4:03 PM ADULT EDUCATION PROFESSIONAL Facial tic CERULOPLASMIN Routine 01/29/2024 4:03 PM ADULT EDUCATION PROFESSIONAL Facial tic ANTINUCLEAR ANTIBODIES, SCREEN Routine 01/29/2024 4:03 PM ADULT EDUCATION PROFESSIONAL Facial tic from Last 3 Months Results * MR BRAIN WO CONTRAST (02/06/2024 3:51 PM ADULT EDUCATION PROFESSIONAL) Anatomical Region Laterality Modality Head Magnetic Resonan ce 02/06/2024 3:51 PM ADULT EDUCATION PROFESSIONAL Narrative 02/07/2024 9:41 AM ADULT EDUCATION PROFESSIONAL This document is currently in Final Status [...] ACID (MMA), QUANTITATIVE, PLASMA (01/29/2024 4:03 PM ADULT EDUCATION PROFESSIONAL) Methylmalonic Acid, QN, P 0.13 <=0.40 nmol/mL 02/03/2024 7:02 AM ADULT EDUCATION PROFESSIONAL [facility] Comment: ADDITIONAL INFORMATION This test was developed and its performance characteristics determined by [facility] in a manner consistent with CLIA requirements. This test has not been cleared or approved by the U.S. Food and Drug Administration. Test Performed by: [facility] - [address] [address] Reporting Specialist: Dorian Julian Ph.D.; CLIA# [id number] Blood BLOOD SPECIMEN / Unknown Venipuncture / Unknown 01/29/2024 4:03 PM ADULT EDUCATION PROFESSIONAL 01/29/2024 4:26 PM ADULT EDUCATION PROFESSIONAL us Joellen Andrade DO LAB SEND OUT ORDERABLE [place] [address], [facility] [phone] * THIAMIN, WHOLE BLOOD (VIT B1) (01/29/2024 4:03 PM ADULT EDUCATION PROFESSIONAL) Pathologist [facility] Thiamin (Vitamin B1), Whole Blood 92 70 - 180 nmol/L 02/01/2024 8:37 AM ADULT EDUCATION PROFESSIONAL [facility] Comment: ADDITIONAL INFORMATION This test was developed and its performance characteristics determined by [facility] in a manner consistent with CLIA requirements. This test has not been cleared or approved by the U.S. Food and Drug Administration. Test Performed by: [facility] [place] [address] Reporting Specialist: Dorian Julian Ph.D.; CLIA# [id number] Blood WHOLE BLOOD SPECIMEN / Unknown Venipuncture / Unknown 01/29/2024 4:03 PM ADULT EDUCATION PROFESSIONAL 01/29/2024 4:24 PM ADULT EDUCATION PROFESSIONAL Joellen Andrade DO LAB SEND OUT ORDERABLE S Final Result [address] [phone] * ANTINUCLEAR ANTIBODIES, SCREEN (01/29/2024 4:03 PM ADULT EDUCATION PROFESSIONAL) [facility] Antinuclear Antibodies 0.4 <=1.0 (Negative ) U 01/31/2024 9:16 PM ADULT EDUCATION PROFESSIONAL [facility] Comment: ADDITIONAL INFORMATION Method: Enzyme-linked immunoassay using HEp-2 nuclear extract supplemented with purified antigens. Test Performed by: [facility] [place] [address] Reporting Specialist: Dorian Julian Ph.D.; CLIA# [id number] Blood BLOOD SPECIMEN / Unknown Venipuncture / Unknown 01/29/2024 4:03 PM ADULT EDUCATION PROFESSIONAL 01/29/2024 4:26 PM ADULT EDUCATION PROFESSIONAL us Joellen James Callenius DO EC CHEMISTRY ORDERABLES F inal Result Performing Organization Address City/[facility]/ZIP Co de Phone Number [address] [phone] * HOMOCYSTEINE (01/29/2024 4:03 PM ADULT EDUCATION PROFESSIONAL) Homocysteine 5 5 - 15 uMol/L 01/30/2024 3:43 PM ADULT EDUCATION PROFESSIONAL [facility] Blood VENOUS CATHETER / Unknown Venipuncture / Unknown 01/29/2024 4:03 PM ADULT EDUCATION PROFESSIONAL 01/29/2024 4:24 PM ADULT EDUCATION PROFESSIONAL Joellen E Callenius DO EC CHEMISTRY ORDERABLES F inal Result Performing Organization Address [facility] de Phone Number [facility] [address] [place] [address] * COPPER, SERUM (01/29/2024 4:03 PM ADULT EDUCATION PROFESSIONAL) Pathologist [facility] Copper 119 77 - 206 mcg/dL 01/31/2024 7:43 PM ADULT EDUCATION PROFESSIONAL [facility] Comment: ADDITIONAL INFORMATION This test was developed and its performance characteristics determined by [facility] in a manner consistent with CLIA requirements. This test has not been cleared or approved by the U.S. Food and Drug Administration. Test Performed by: [facility] - [address] [address] Reporting Specialist: Dorian Julian Ph.D.; CLIA# [id number] Blood BLOOD SPECIMEN / Unknown Venipuncture / Unknown 01/29/2024 4:03 PM ADULT EDUCATION PROFESSIONAL 01/29/2024 4:26 PM ADULT EDUCATION PROFESSIONAL Joellen Ramirez Callenius DO EC LAB SEND OUT ORDERABLE S Final Result Performing Organization Address [facility]/ZIP Co de Phone Number [address] [phone] * CERULOPLASMIN (01/29/2024 4:03 PM ADULT EDUCATION PROFESSIONAL) Ceruloplasmin 26.9 20.0 - 51.0 mg/dL 02/02/2024 11:16 AM ADULT EDUCATION PROFESSIONAL [facility] Comment: Test Performed by: [facility] - [facility] [address] [place] [address] Reporting Specialist: Dorian Julian Ph.D.; CLIA# [id number] Blood BLOOD SPECIMEN / Unknown Venipuncture / Unknown 01/29/2024 4:03 PM ADULT EDUCATION PROFESSIONAL 01/29/2024 4:26 PM ADULT EDUCATION PROFESSIONAL us Joellen E Callenius DO EC LAB SEND OUT ORDERABLE S Final Result Performing Organization Address City/[facility]/ZIP Co de Phone Number [facility] [address] [place], [place] [address] [phone] * FOLATE, SERUM (01/29/2024 4:03 PM ADULT EDUCATION PROFESSIONAL) Folate 12.9 7.0 - 31.4 ng/mL 01/29/2024 6:29 PM ADULT EDUCATION PROFESSIONAL [facility] Blood BLOOD SPECIMEN / Unknown Venipuncture / Unknown 01/29/2024 4:03 PM ADULT EDUCATION PROFESSIONAL 01/29/2024 4:26 PM ADULT EDUCATION PROFESSIONAL Narrative [facility] - 01/29/2024 6:29 PM ADULT EDUCATION PROFESSIONAL Folate Reference Range Normal: 7.0 - 31.4 ng/mL Indeterminate: 3.5 - 6.9 ng/mL Deficient: <3.5 ng/mL us Joellen E Callenius DO EC CHEMISTRY ORDERABLES F inal Result [facility] [address] [address], [facility] from Last [address] [place] [address] [place] [address] * Guarantor: BARBIE GONZALEZ Account Type Relation to Patient Date of Phone Billing Address Pharmacy [address] [id number] [address] [id number] [facility] [employer] ([place] [employer] [employer] / APPLAUSE [place] [id number] Care Teams Firesetter Relationship Specialty Start Date End Date Debi Brand MD [address] [place] [address] [place] [phone] PCP - General Family Medicine 09/29/21
[2024-04-17] MEDS: 0.9 % SODIUM CHLORIDE 1000 ml 1,000 ML IV (20:02)
[2024-04-17] MEDS: ONDANSETRON 2 MG/ML inj 4 MG IVP (20:03)
--- NOTE | 2024-04-17 20:13 | ED_ITS ---
HPI - General Adult General Chief complaint: Nausea/Vomiting Stated complaint: Vomiting,diarrhea Time Seen by Provider: 04/17/24 19:37 Source: patient Mode of arrival: ambulatory Limitations: no limitations History of Present Illness HPI narrative: 18-year-old female coming in today complaining of diarrhea and vomiting that started this morning. She has had multiple episodes of watery diarrhea and a handful of episodes of vomiting. She denies any blood in either. She denies fevers or chills. She complains of epigastric discomfort. Her last menses was last week, denies . She denies recent travel or sick contacts. Feels dehydrated. Related Data Home Medications ?Medication ?Instructions ?Recorded ?Confirmed escitalopram oxalate 10 mg tablet 15 mg PO DAILY 03/31/23 11/14/23 clonidine HCl 0.1 mg tablet 0.1 mg PO DAILY 11/12/23 11/14/23 Allergies Allergy/AdvReac Type Severity Reaction Status Date / Time No Known Drug Allergies Allergy Verified 11/14/23 14:09 Review of Systems Status of ROS: Reports: 10 or more systems reviewed and unremarkable except as noted in History and below [facility] Medical History Sinus infection ?J32.9 - Chronic sinusitis, unspecified (ICD-10) Cough ?R05.9 - Cough, unspecified (ICD-10) Social History Smoking Status: Never smoker Do you use any of these nicotine containing products: None Second hand tobacco smoke exposure: No How often do you have a drink containing alcohol: never How often do you have six or more drinks on one occasion: Never AUDIT-C Alcohol total score: 0 Non-prescribed substance use: denies use service: No Exam Narrative: Exam Narrative: Well-nourished well-developed patient in no acute distress. Alert and oriented. Answers questions appropriately. Mood and affect are appropriate. Thoughts are goal oriented and rational. No tangential or magical thinking noted. Patient speaks in full sentences without needing to catch her breath. HEENT: Normocephalic atraumatic. Pupils are equally round reactive to light. Extraocular muscles are intact. Conjunctivae are moist without any icterus noted. Moist mucous membranes. Posterior pharynx is normal. Neck is soft without any lymphadenopathy or thyromegaly. No masses are appreciated. Cardiovascular: Heart is regular rate and rhythm S1 and S2 are present without any murmurs. Lungs: Clear to auscultation bilaterally no wheezes rhonchi or rales are appreciated. Patient takes deep breaths without any discomfort. Abdomen: Soft and nontender nondistended with normal bowel sounds. No guarding or rebound. No masses or organomegaly appreciated. Extremities: Bilateral lower extremities are without edema. Skin: Well perfused without any obvious rashes. Const: Vital Signs, click to edit/add: Vital Signs - 24 hr 04/17/24 18:17 Temperature 99.9 F H Pulse Rate [Pulse Oximeter] 93 Respiratory Rate 16 Blood Pressure [Ri ght Upper Arm] 107/73 Pulse Oximetry 97 Oxygen Delivery Me thod Room Air Course Course ED Course: Because patient is on escitalopram we did do an EKG today to make sure she did not have QT prolongation. EKG, read by me, showed normal sinus rhythm with a pulse of 64, normal QT. IV was established and she received a L of normal saline and Zofran. She did have a headache so IV Toradol was also given. She had 1 episode of diarrhea and no vomiting while she was here. Vital Signs Vital signs: Initial Vital Signs Temperature 99.9 F H 04/17/24 18:17 Temperature Source Temporal Artery Scan 04/17/24 18:17 Pulse Rate 93 04/17/24 18:17 Pulse Rhythm Regular 04/17/24 18:17 Respiratory Rate 16 04/17/24 18:17 Blood Pressure 107/73 04/17/24 18:17 Blood Pressure Mean 84 04/17/24 18:17 Blood Pressure Position Sitting 04/17/24 18:17 Pulse Oximetry 97 04/17/24 18:17 Oxygen Delivery Method Room Air 04/17/24 18:17 Vital Signs Temperature 99.9 F H 04/17/24 18:17 Pulse Rate 93 04/17/24 18:17 Respiratory Rate 16 04/17/24 18:17 Blood Pressure 107/73 04/17/24 18:17 Pulse Oximetry 97 04/17/24 18:17 Oxygen Delivery Method Room Air 04/17/24 18:17 Temperature 99.9 F H 04/17/24 18:17 Pulse Rate 93 04/17/24 18:17 Respiratory Rate 16 04/17/24 18:17 Blood Pressure 107/73 04/17/24 18:17 Pulse Oximetry 97 04/17/24 18:17 Oxygen Delivery Method Room Air 04/17/24 18:17 Medications Administered Medications: Discontinued Medications Generic Name Dose Route Start Last Admin Trade Name Jesús PRN Reason Stop Dose Admin Sodium Chloride 1,000 mls @ 1,000 mls/hr 04/17/24 19:45 04/17/24 20:02 0.9 % Sodium Chloride 1000 Ml IV 04/17/24 20:44 1,000 mls/hr .Q1H ELENA Administration Ondansetron HCl 4 mg 04/17/24 19:41 04/17/24 20:03 Ondansetron 2 Mg/Ml Inj IVP 04/17/24 19:42 4 mg ONCE ONE Administration Medical Decision Making MDM Narrative Medical decision making narrative: 18-year-old female with less than 24 hours of nausea and vomiting consistent with a gastroenteritis. Discussed her symptoms may continue for another day. We discussed reasons for follow-up. Discharge Plan Discharge Clinical Impression: Gastroenteritis Patient Disposition: Home, Self-Care Condition: Stable Additional Instructions: Do your best to stay well hydrated with very small amounts of fluids very frequently throughout the day. Okay to use Imodium as needed/as prescribed for diarrhea. Follow-up with your primary care provider as needed. Prescriptions: No Action escitalopram oxalate 10 mg tablet 15 mg PO DAILY clonidine HCl 0.1 mg tablet 0.1 mg PO DAILY Follow Up/Referrals: Provider,Not a Local [Primary Care Provider] - Stand Alone Forms: [employer] Info Instructions
[2024-04-17] MEDS: KETOROLAC 30 MG/ML inj IVP (20:57)
[2024-04-17 21:11] VITALS: BP 108/60; PULSE 62; RESP 16; TEMP 36.7
== END 2024-04-17 21:12 | disposition home or self-care (01) ==
PROVIDERS: Emergency Provider Family Medicine
DX: K52.9 Noninfective gastroenteritis and colitis, unspecified (principal)
CPT/HCPCS: 96374; 96375; 99283; 99284; J1885; J2405; J7030